=== PATIENT | female | born 1935 | race Caucasian/White ===

== ENCOUNTER → 2016-07-06 | Outpatient (CLI) | payer MEDICARE | LOC: OD 10:53 | PROVIDERS: ATTEND Family Medicine | DX: M06.4 Inflammatory polyarthropathy (principal) | CPT/HCPCS: 36415; 85652; 86140 ==

== ENCOUNTER 2016-07-23 07:18 | Emergency (ER) | payer MEDICARE ==
--- NOTE | 2016-07-23 07:44 | ER Document Report ---
ED General - General Chief Complaint: Arm Pain Stated Complaint: PACEMAKER COMPLICATIONS ARM PAIN Mode of Arrival: Ambulatory Information source: Patient Notes: 81-year-old female presents after a pacemaker was placed 3 days prior with concerns of left arm pain and fever. Pacemaker was placed by Dr. Cronin at [place] due to atrial fibrillation TRAVEL OUTSIDE OF THE [place] IN LAST 30 DAYS: No - HPI Onset: Other Onset/Duration: Persistent Quality of pain: Achy Severity: Mild Pain Level: 1 Associated symptoms: Other Exacerbated by: Denies Relieved by: Denies Similar symptoms previously: Yes Recently seen / treated by doctor: Yes - Related Data Allergies/Adverse Reactions: No Known Allergies Allergy (Verified 07/23/16 07:23) Past Medical History - Social History Smoking Status: Never Smoker Cigarette use (# per day): No Chew tobacco use (# tins/day): No Smoking Education Provided: No Family History: Reviewed & Not Pertinent Patient has suicidal ideation: No Patient has homicidal ideation: No - Past Medical History Cardiac Medical History: Reports: Hx Atrial Fibrillation - and A flutter, Hx Hypertension Neurological Medical History: Reports: Hx Cerebrovascular Accident - Mini- strokes by scans. Pt never aware of stroke symptoms. Endocrine Medical History: Reports: Hx Diabetes Mellitus Type 2 Renal/ Medical History: Denies: Hx Peritoneal Dialysis Psychiatric Medical History: Denies: Hx Depression Past Surgical History: Reports: Hx Section - X2, Hx Hysterectomy, Hx Orthopedic Surgery - carpel tunnel surgery - Immunizations Hx Pneumococcal Vaccination: 03/19/08 Review of Systems - Review of Systems Notes: REVIEW OF SYSTEMS: CONSTITUTIONAL : Denies fever, chills, or sweats. Denies recent illness. EENT: Denies eye, ear, throat, or mouth pain or symptoms. Denies nasal or sinus congestion or discharge. Denies throat, tongue, or mouth swelling or difficulty swallowing. CARDIOVASCULAR: Denies chest pain. Denies palpitations or racing or irregular heart beat. Denies ankle edema. RESPIRATORY: Denies cough, cold, or chest congestion. Denies shortness of breath, difficulty breathing, or wheezing. GASTROINTESTINAL: Denies abdominal pain or distention. Denies nausea, vomiting , or diarrhea. Denies blood in vomitus, stools, or per rectum. Denies black, tarry stools. Denies constipation. GENITOURINARY: Denies difficulty urinating, painful urination, burning, frequency, blood in urine, or discharge. FEMALE GENITOURINARY: Denies vaginal bleeding, heavy or abnormal periods, irregular periods. Denies vaginal discharge or odor. MUSCULOSKELETAL: Denies back or neck pain or stiffness. Denies joint pain or swelling. SKIN: Left pacemaker redness HEMATOLOGIC : Denies easy bruising or bleeding. LYMPHATIC: Denies swollen, enlarged glands. NEUROLOGICAL: Denies confusion or altered mental status. Denies passing out or loss of consciousness. Denies dizziness or lightheadedness. Denies headache. Denies weakness or paralysis or loss of use of either side. Denies problems with gait or speech. Denies sensory loss, numbness, or tingling. Denies seizures. PSYCHIATRIC: Denies anxiety or stress. Denies depression, suicidal ideation, or homicidal ideation. ALL OTHER SYSTEMS REVIEWED AND NEGATIVE. Dictation was performed using [employer] recognition software PHYSICAL EXAMINATION: GENERAL: Well-appearing, well-nourished and in no acute distress. HEAD: Atraumatic, normocephalic. EYES: Pupils equal round and reactive to light, extraocular movements intact, conjunctiva are normal. ENT: Nares patent, oropharynx clear without exudates. Moist mucous membranes. NECK: Normal range of motion, supple without lymphadenopathy LUNGS: Breath sounds clear to auscultation bilaterally and equal. No wheezes rales or rhonchi. HEART: Regular rate and rhythm without murmurs ABDOMEN: Soft, nontender, nondistended abdomen. No guarding, no rebound. No masses appreciated. Female : deferred Musculoskeletal: Normal range of motion, no pitting or edema. No cyanosis. Left arm in sling NEUROLOGICAL: Cranial nerves grossly intact. Normal speech, normal gait. Normal sensory, motor exams PSYCH: Normal mood, normal affect. SKIN: Bandage was removed, sutures are in place, there is no pus noted, blood with clear fluid noted. There is mild erythema on the lateral aspect near the axillary region without any enlarged lymph node Physical Exam - Vital signs Vitals: Temp Pulse Resp BP Pulse Ox 98.2 F 67 20 109/53 L 95 07/23/16 07:23 07/23/16 07:23 07/23/16 07:23 07/23/16 07:23 07/23/16 07:23 Course - Re-evaluation Re-evalutation: 07/23/16 07:44 Lab work pending, does not appear to have any significant drainage however there is mild erythema 07/23/16 10:[address] hanson, he will speak with dr Guidry 07/23/16 11:54 Dr. Cronin does not believe this is an infectious process however wishes to see patient in the office tomorrow. I will discharge home with antibiotics and very close follow-up, family's very happy with this plan After performing a Medical Screening Examination, I estimate there is LOW risk for OPEN FRACTURE, COMPARTMENT SYNDROME, TENDON RUPTURE, ACUTE NEUROVASCULAR INJURY, or RETAINED FOREIGN BODY, thus I consider the discharge disposition reasonable. Also, there is no evidence or peritonitis, sepsis, or toxicity. I have reevaluated this patient multiple times and no significant life threatening changes are noted. The patient and I have discussed the diagnosis and risks, and we agree with discharging home with close follow-up with the understanding that symptoms and presentations can change. We also discussed returning to the Emergency Department immediately if new or worsening symptoms occur. We have discussed the symptoms which are most concerning (e.g., changing or worsening pain, fever, numbness, weakness, cool or painful digits) that necessitate immediate return. - Vital Signs Vital signs: Temp Pulse Resp BP Pulse Ox 98.2 F 67 20 109/53 L 95 07/23/16 07:23 07/23/16 07:23 07/23/16 07:23 07/23/16 07:23 07/23/16 07:23 - Laboratory Result Diagrams: 07/23/16 09:08 07/23/16 09:08 Laboratory results interpreted by me: 07/23/16 09:08 Est GFR ( Amer) 58 L Est GFR (Non-Af Amer) 48 L Glucose 220 H Total Bilirubin 1.4 H - Diagnostic Test Radiology reviewed: Image reviewed, Reports reviewed Discharge - Discharge Clinical Impression: Post-op pain Cellulitis Qualifiers: Site of cellulitis: trunk Site of cellulitis of trunk: chest wall Qualified Code(s): L03.313 - Cellulitis of chest wall Condition: Stable Disposition: HOME, SELF-CARE Instructions: Cellulitis ([facility]) Additional Instructions: Please follow-up with your physician tomorrow morning Prescriptions: Cephalexin Monohydrate [Keflex 500 mg Capsule] 500 mg PO QID #40 capsule Hydrocodone/Acetaminophen [Adams 5-325 mg Tablet] 1 tab PO Q6 #14 tablet Sulfamethoxazole/Trimethoprim [Bactrim Ds Tablet] 2 each PO BID #40 tablet
[2016-07-23 09:26] LABS: ABSOLUTE BASOPHILS # (AUTO) 0.1 10^3/uL (0.0-0.2); ABSOLUTE EOSINOPHILS # (AUTO) 0.1 10^3/uL (0.0-0.6); ABSOLUTE NEUT (AUTO) 6.5 10^3/uL (1.7-8.2); BASOPHILS % (AUTO) 0.7 % (0-2); EOSINOPHILS % (AUTO) 1.2 % (0-6); HEMOGLOBIN 13.5 g/dL (12.0-15.5); HGB HCT DIFFERENCE -0.5; LYMPHOCYTES % (AUTO) 20.2 % (13-45); MEAN CORPUSCULAR HGB CONC 33.1 g/dL (32.0-36.0); MEAN CORPUSCULAR VOLUME 88 fl (80-97); MONOCYTES % (AUTO) 10.8 % (3-13); RED BLOOD COUNT 4.68 10^6/uL (3.72-5.28); RED CELL DISTRIBUTION WIDTH 13.4 % (11.5-14.0); SEGMENTED NEUTROPHILS % (AUTO) 67.1 % (42-78); WHITE BLOOD COUNT 9.7 10^3/uL (4.0-10.5)
[2016-07-23 09:44] LABS: ALANINE AMINOTRANSFERASE 25 U/L (9-52); ALBUMIN 3.9 g/dL (3.5-5.0); ALKALINE PHOSPHATASE 85 U/L (38-126); ANION GAP 11 (5-19); ASPARTATE AMINO TRANSFERASE 18 U/L (14-36); BILIRUBIN,DIRECT 0.3 mg/dL (0.0-0.4); BILIRUBIN,TOTAL 1.4 mg/dL (0.2-1.3); BLOOD UREA NITROGEN 17 mg/dL (7-20); CALCIUM 9.6 mg/dL (8.4-10.2); CARBON DIOXIDE 29 mmol/L (22-30); CHLORIDE 101 mmol/L (98-107); GLUCOSE 220 mg/dL (75-110); POTASSIUM 4.4 mmol/L (3.6-5.0); SODIUM 141.4 mmol/L (137-145); TOTAL PROTEIN 7.1 g/dL (6.3-8.2)
[2016-07-23] MEDS ORDERED: CEPHALEXIN 500 MG CAPSULE PO ONE (10:12)
[2016-07-23] MEDS ORDERED: HYDROCODONE/ACETAMINOPHEN 5-325 MG TABLET PO ONE (10:30)
[2016-07-23 12:12] VITALS: BP 108/55
== END 2016-07-23 12:09 | disposition home or self-care (01) ==
LOC: ER 07:18
DX: G89.18 Other acute postprocedural pain (principal); M79.602 Pain in left arm; L03.313 Cellulitis of chest wall; Z95.0 Presence of cardiac pacemaker; I48.91 Unspecified atrial fibrillation; I10 Essential (primary) hypertension; E11.9 Type 2 diabetes mellitus without complications; Z86.73 Personal history of transient ischemic attack (TIA), and cerebral infarction without residual deficits
CPT/HCPCS: 99283; 36415; 87040; 85025; 80053; 71020; A9270 ×2

== ENCOUNTER 2016-10-20 07:42 | Day surgery (SDC) | payer MEDICARE ==
[2016-10-20] MEDS ORDERED: DIPHENHYDRAMINE HCL 50 MG/ML VIAL ONE (08:21)
[2016-10-20] MEDS ORDERED: ONDANSETRON HCL INJ/PF 4 MG/2 ML SDV ONE (08:21)
[2016-10-20] MEDS ORDERED: MIDAZOLAM 2 MG/2 ML INJ ONE (08:22)
[2016-10-20] MEDS ORDERED: NALOXONE HCL INJ/PF 0.4 MG/1 ML SDV ONE (08:22)
[2016-10-20] MEDS ORDERED: FLUMAZENIL INJ 0.5 MG/5 ML VIAL IV ONE (08:25)
[2016-10-20] MEDS ORDERED: GLUCAGON,HUMAN RECOMB 1 MG INJ ONE (08:25)
[2016-10-20] MEDS ORDERED: EPINEPHRINE INJ 1 MG/10 ML DISP.SYRIN ONE (08:25)
[2016-10-20] MEDS: MIDAZOLAM 2 MG/2 ML INJ ONE ×4 (08:55→09:20)
[2016-10-20] MEDS: FENTANYL CITRATE INJ/PF 100 MCG/2 ML AMPUL ONE ×2 (08:57→09:08)
--- NOTE | 2016-10-20 09:44 | Operative Report ---
Operative Report DATE OF SURGERY: 10/20/16 Operative Report: The risks, benefits and alternatives of the procedure including risks of bleeding, perforation requiring surgery are explained to the patient detail and informed consent was obtained. Patient was taken to the endoscopy suite and placed in the left, lateral decubital position. Timeout was called. Conscious sedation medications are provided. A rectal examination was done which did not reveal any masses, tears or fissures. An Olympus video scope was inserted into the patient's rectum. The scope was then carefully guided but there was significant difficulty completing the colonoscopy. This was despite the application of abdominal pressure and turning the patient. She has a very redundant left side of the colon. The right side of the colon was not visualized. It is unclear if a change of medications i.e. changing towards propofol sedation would make it any better. She likely has some adhesions and a very redundant colon that prevents completion of optical colonoscopy. The segments of the colon distal to the hepatic flexure were visualized including the transverse colon, splenic flexure, very with tendon descending colon. Sigmoid colon and rectum were visualized. Retroflexion maneuver was performed. PREOPERATIVE DIAGNOSIS: Change of bowel habits, constipation POSTOPERATIVE DIAGNOSIS: Redundancy of the left side of the colon. Colon polyp noted at the hepatic flexure which is able to be removed via snare polypectomy. May need alternative imaging methods. OPERATION: Colonoscopy with snare polypectomy SURGEON: SAMSON GLASGOW ANESTHESIA: Moderate Sedation - 5 mg of Versed, 75 mcg of fentanyl. Conscious sedation monitoring time 30 minutes. TISSUE REMOVED OR ALTERED: Hepatic flexure polyp retrieved. COMPLICATIONS: None. ESTIMATED BLOOD LOSS: None. INTRAOPERATIVE FINDINGS: As described above. PROCEDURE: Patient tolerated the procedure well. No immediate postprocedure complications are noted. Patient discharged in good condition. Discharge date 10/20/2016. Discharge diet: Regular. Discharge activity: Regular. 2-3 week follow-up to discuss findings. 1 year surveillance colonoscopy., Will need alternative prep. Patient is instructed to call the office or proceed to the emergency room should there be any further problems or questions. We will wait on pathology.
[2016-10-20 10:30] VITALS: BP 129/52
== END 2016-10-20 10:40 | disposition home or self-care (01) ==
LOC: END 07:42
PROVIDERS: ATTEND Internal Medicine Gastroenterology
PROC: 0DBK8ZX Excision of Ascending Colon, Via Natural or Artificial Opening Endoscopic, Diagnostic (ICD-10-PCS; principal; 2016-10-20 08:30)
DX: K63.5 Polyp of colon (principal); Z79.899 Other long term (current) drug therapy; Z79.82 Long term (current) use of aspirin; Z79.84 Long term (current) use of oral hypoglycemic drugs; Z79.51 Long term (current) use of inhaled steroids
CPT/HCPCS: 45385; 82962; 88305 ×2; J2250; J3010; J0171; J1200; J1610; J2310; J2405; J3490

== ENCOUNTER 2016-10-31 12:53 | Emergency (ER) | payer MEDICARE ==
--- NOTE | 2016-10-31 13:31 | ER Document Report ---
ED Medical Screen (RME) - General Chief Complaint: Headache Stated Complaint: FACE/NECK/HEAD PAIN Time Seen by Provider: 10/31/16 13:13 Mode of Arrival: Ambulatory Information source: Patient Notes: 81-year-old female history of migraine headache presents with complaints of right-sided neck pain and right temporal pain. Patient denies any fevers or chills notes it hurts with palpation I have greeted and performed a rapid initial assessment of this patient. A comprehensive ED assessment and evaluation of the patient, analysis of test results and completion of the medical decision making process will be conducted by additional ED providers. PHYSICAL EXAMINATION: GENERAL: Well-appearing, well-nourished and in no acute distress. HEAD: Atraumatic, normocephalic. EYES: Pupils equal round extraocular movements intact, conjunctiva are normal. ENT: Nares patent, tenderness on the temperal region on the right , right cervical pain NECK: Normal range of motion LUNGS: No respiratory distress Musculoskeletal: Normal range of motion NEUROLOGICAL: Normal speech, normal gait. PSYCH: Normal mood, normal affect. SKIN: Warm, Dry, normal turgor, no rashes or lesions noted. TRAVEL OUTSIDE OF THE [place] IN LAST 30 DAYS: No - Related Data Allergies/Adverse Reactions: No Known Allergies Allergy (Verified 10/31/16 13:00) Past Medical History - Social History Frequency of alcohol use: None Drug Abuse: None - Past Medical History Cardiac Medical History: Reports: Hx Atrial Fibrillation - and A flutter, Hx Hypercholesterolemia, Hx Hypertension Denies: Hx Coronary Artery Disease, Hx Heart Attack Pulmonary Medical History: Reports: Hx COPD, Hx Pneumonia Denies: Hx Asthma, Hx Bronchitis Neurological Medical History: Reports: Hx Cerebrovascular Accident - Mini- strokes by scans. Pt never aware of stroke symptoms., Hx Migraine. Denies: Hx Seizures Endocrine Medical History: Reports: Hx Diabetes Mellitus Type 2 Renal/ Medical History: Denies: Hx Peritoneal Dialysis GI Medical History: Reports: Hx Gastroesophageal Reflux Disease Musculoskeltal Medical History: Reports Hx Arthritis - HAND, KNEES, SHOULDER, NECK Psychiatric Medical History: Denies: Hx Depression Past Surgical History: Reports: Hx Cardiac Surgery - pacemaker 08/02, Hx Section - X2, Hx Hysterectomy, Hx Orthopedic Surgery - carpel tunnel surgery - Immunizations Hx Diphtheria, Pertussis, Tetanus Vaccination: Yes Physical Exam - Vital signs Vitals: Resp 18 10/31/16 13:14 Course - Vital Signs Vital signs: Temp Pulse Resp BP Pulse Ox 10/31/16 13:14
[2016-10-31] MEDS ORDERED: MORPHINE SULFATE 10 MG/ML INJ IV ONE (13:32)
[2016-10-31 14:18] LABS: ABSOLUTE BASOPHILS # (AUTO) 0.1 10^3/uL (0.0-0.2); ABSOLUTE EOSINOPHILS # (AUTO) 0.2 10^3/uL (0.0-0.6); ABSOLUTE MONOCYTES (AUTO) 0.6 10^3/uL (0.1-1.4); ABSOLUTE NEUT (AUTO) 4.6 10^3/uL (1.7-8.2); BASOPHILS % (AUTO) 0.9 % (0-2); EOSINOPHILS % (AUTO) 3.2 % (0-6); HEMATOCRIT 36.5 % (36.0-47.0); HEMOGLOBIN 12.4 g/dL (12.0-15.5); HGB HCT DIFFERENCE 0.7; LYMPHOCYTES % (AUTO) 26.9 % (13-45); MEAN CORPUSCULAR HEMOGLOBIN 30.3 pg (27.0-33.4); MEAN CORPUSCULAR HGB CONC 33.8 g/dL (32.0-36.0); MEAN CORPUSCULAR VOLUME 90 fl (80-97); MONOCYTES % (AUTO) 8.2 % (3-13); RED BLOOD COUNT 4.08 10^6/uL (3.72-5.28); RED CELL DISTRIBUTION WIDTH 14.3 % (11.5-14.0); SEGMENTED NEUTROPHILS % (AUTO) 60.8 % (42-78); WHITE BLOOD COUNT 7.6 10^3/uL (4.0-10.5)
[2016-10-31 14:50] LABS: ALANINE AMINOTRANSFERASE 23 U/L (9-52); ALKALINE PHOSPHATASE 66 U/L (38-126); ANION GAP 11 (5-19); ASPARTATE AMINO TRANSFERASE 16 U/L (14-36); BILIRUBIN,DIRECT 0.5 mg/dL (0.0-0.4); BILIRUBIN,TOTAL 0.9 mg/dL (0.2-1.3); BLOOD UREA NITROGEN 21 mg/dL (7-20); C-REACTIVE PROTEIN 7.9 mg/L (<10.0); CALCIUM 9.6 mg/dL (8.4-10.2); CARBON DIOXIDE 25 mmol/L (22-30); CHLORIDE 104 mmol/L (98-107); CREATININE RESULT 1.04 mg/dL (0.52-1.25); GLUCOSE 202 mg/dL (75-110); POTASSIUM 4.2 mmol/L (3.6-5.0); SODIUM 139.9 mmol/L (137-145); TOTAL PROTEIN 6.9 g/dL (6.3-8.2)
[2016-10-31 14:59] LABS: ERYTHROCYTE SEDIMENTATION RATE 36 mm/hr (0-30)
--- NOTE | 2016-10-31 16:30 | ER Document Report ---
ED Headache - General Mode of Arrival: Ambulatory Information source: Patient TRAVEL OUTSIDE OF THE [place] IN LAST 30 DAYS: No <ENMA VENEGAS - Last Filed: 10/31/16 19:53> <CAMILLE WYNN - Last Filed: 10/31/16 22:32> - General Chief Complaint: Headache Stated Complaint: FACE/NECK/HEAD PAIN Time Seen by Provider: 10/31/16 13:13 Notes: Patient is a 81-year-old female who presents to the emergency department today with complaints of a headache in the back of her head. Patient states she has been having a headache for approximately 3 days. Patient denies any trauma or falls recently. Patient has a cough which she states is chronic. Patient denies any fall or trauma. (ENMA VENEGAS) - Related Data Allergies/Adverse Reactions: No Known Allergies Allergy (Verified 10/31/16 13:00) Past Medical History - General Information source: Patient - Social History Smoking Status: Former Smoker Cigarette use (# per day): No Frequency of alcohol use: None Drug Abuse: None Lives with: Family Family History: Reviewed & Not Pertinent Patient has suicidal ideation: No Patient has homicidal ideation: No - Past Medical History Cardiac Medical History: Reports: Hx Atrial Fibrillation - and A flutter, Hx Hypercholesterolemia, Hx Hypertension Pulmonary Medical History: Reports: Hx COPD, Hx Pneumonia Neurological Medical History: Reports: Hx Cerebrovascular Accident - Mini- strokes by scans. Pt never aware of stroke symptoms., Hx Migraine Endocrine Medical History: Reports: Hx Diabetes Mellitus Type 2 GI Medical History: Reports: Hx Gastroesophageal Reflux Disease Musculoskeltal Medical History: Reports Hx Arthritis - HAND, KNEES, SHOULDER, NECK Past Surgical History: Reports: Hx Cardiac Surgery - pacemaker 08/02, Hx Section - X2, Hx Hysterectomy, Hx Orthopedic Surgery - carpel tunnel surgery - Immunizations Hx Diphtheria, Pertussis, Tetanus Vaccination: Yes Hx Pneumococcal Vaccination: 03/19/08 <ENMA VENEGAS - Last Filed: 10/31/16 19:53> Review of Systems - Review of Systems Constitutional: No symptoms reported EENT: No symptoms reported Cardiovascular: No symptoms reported Respiratory: See HPI, Cough Gastrointestinal: No symptoms reported Genitourinary: No symptoms reported Female Genitourinary: No symptoms reported Musculoskeletal: No symptoms reported Skin: No symptoms reported Hematologic/Lymphatic: No symptoms reported Neurological/Psychological: See HPI, Headaches -: Yes All other systems reviewed and negative <RUBI,ENMA - Last Filed: 10/31/16 19:53> Physical Exam <ENMA VENEGAS - Last Filed: 10/31/16 19:53> <CAMILLE WYNN - Last Filed: 10/31/16 22:32> - Vital signs Vitals: Temp Pulse BP Pulse Ox 97.6 F 67 137/40 H 96 10/31/16 12:59 10/31/16 12:59 10/31/16 12:59 10/31/16 12:59 - Notes Notes: Physical Exam: General: Alert, appears well. HEENT: Normocephalic. Atraumatic. PERRL. Extraocular movements intact. Oropharynx clear. TMs are clear bilaterally. Tenderness with palpation at the base of the right skull. Neck: Supple. Tenderness with palpation over the right trapezius and levator scapula. Pain with rotation of the neck to the right, reproducible pain. Respiratory: No respiratory distress. Clear and equal breath sounds bilaterally. Cardiovascular: Regular rate and rhythm. Abdominal: Normal Inspection. Non-tender. No distension. Normal Bowel Sounds. Back: Non-tender. No deformity or step off. Extremities: Moves all four extremities. Upper extremities: Normal inspection. Normal ROM. Lower extremities: Normal inspection. No edema. Normal ROM. Neurological: Normal cognition. AAOx4. Normal speech. Psychological: Normal affect. Normal Mood. Skin: Warm. Dry. Normal color. (ENMA VENEGAS) Course - Laboratory Result Diagrams: 10/31/16 14:00 10/31/16 14:00 <INDIANA VENEGASON - Last Filed: 10/31/16 19:53> - Laboratory Result Diagrams: 10/31/16 14:00 10/31/16 14:00 - Diagnostic Test Radiology reviewed: Reports reviewed <CAMILLE WYNN - Last Filed: 10/31/16 22:32> - Re-evaluation Re-evalutation: 10/31/16 18:36 (ENMA VENEGAS) Patient with no further headache at this time. Patient has been taking headache medication at home without relief. Pain relieved with pain medication. Patient has reproducible neck pain and also pain when she turns her head. No acute findings on imaging or blood work. Patient will be discharged home is to follow-up with her doctor. She had been getting injections which completely resolved her neck and head pain. She is encouraged to follow-up with her doctor this week. Return if any worsening or concerning symptoms. (CAMILLE WYNN) - Vital Signs Vital signs: Temp Pulse Resp BP Pulse Ox 97.6 F 63 16 139/46 H 98 10/31/16 18:11 10/31/16 18:11 10/31/16 18:11 10/31/16 18:11 10/31/16 18:11 - Laboratory Laboratory results interpreted by me: 10/31/16 10/31/16 14:00 14:00 RDW 14.3 H ESR 36 H BUN 21 H Est GFR (Non-Af Amer) 51 L Glucose 202 H Direct Bilirubin 0.5 H Discharge <ENMA VENEGAS - Last Filed: 10/31/16 19:53> <CAMILLE WYNN - Last Filed: 10/31/16 22:32> - Discharge Clinical Impression: Neck pain Head ache Qualifiers: Headache type: unspecified Headache chronicity pattern: acute headache Intractability: not intractable Qualified Code(s): R51 - Headache Condition: Stable Disposition: HOME, SELF-CARE Instructions: Headache ([facility]), Neck Injury (Cervical Strain) ([facility]) Prescriptions: Docusate Sodium [Colace 100 mg Capsule] 100 mg PO BID #60 capsule Oxycodone HCl/Acetaminophen [Percocet 5-325 mg Tablet] 1 tab PO Q4H PRN #15 tablet PRN Reason: Referrals: MERY FELDER PA-C [Primary Care Provider] - Follow up tomorrow Scribe Attestation: 10/31/16 22:32 I personally performed the services described in the documentation, reviewed and edited the documentation which was dictated to the scribe in my presence, and it accurately records my words and actions. (CAMILLE WYNN) Scribe Documentation - Scribe Written by Maryaibe:: Kevin Pascal, 10/31/2016 1615 acting as scribe for :: Byron <ENMA VENEGAS - Last Filed: 10/31/16 19:53>
--- NOTE | 2016-10-31 16:43 | RADIOLOGY REPORT (SQ) ---
EXAM DESCRIPTION: CT HEAD WITHOUT COMPLETED DATE/TIME: 10/31/2016 4:30 pm REASON FOR STUDY: headache, on eliquis COMPARISON: None. TECHNIQUE: Axial images acquired through the brain without intravenous contrast. Images reviewed wi th bone, brain and subdural windows. Images stored on PACS. All CT scanners at this facility use dose modulation, iterative reconstruction, and/or weight based d osing when appropriate to reduce radiation dose to as low as reasonably achievable (ALARA). [facility]: Dose Right [facility]: CareDose [facility]: Dose Right [facility]: Teradose 4D [facility]: [employer] RADIATION DOSE: Up-to-date CT equipment and radiation dose reduction techniques were employed. CTDIv ol: 64.6 mGy. DLP: 1163 mGy-cm. mGy. LIMITATIONS: None. FINDINGS: VENTRICLES: Normal size and contour. CEREBRUM: No acute intracranial hemorrhage. There is chronic white matter disease with low attenuation in the bifrontal white matter, multiple la cunar infarcts in the right basal ganglia. No CT evidence of acute large territory ischemic change, mass effect, or midline shift. CEREBELLUM: No masses. No hemorrhage. No alteration of density. No evidence for acute infarction. EXTRAAXIAL SPACES: No fluid collections. No masses. ORBITS AND GLOBE: No intra- or extraconal masses. Normal contour of globe without masses. CALVARIUM: No fracture. PARANASAL SINUSES: Mucus or serous retention cyst right maxillary sinus SOFT TISSUES: No mass or hematoma. OTHER: No other significant finding. IMPRESSION: No acute changes Bifrontal chronic white matter disease TECHNICAL DOCUMENTATION: JOB ID: [id number] Quality ID # [id number]: Final reports with documentation of one or more dose reduction techniques (e.g., Au tomated exposure control, adjustment of the mA and/or kV according to patient size, use of iterative reconstruction technique) 2010 [employer]- All Rights Reserved
--- NOTE | 2016-10-31 18:05 | RADIOLOGY REPORT (SQ) ---
EXAM DESCRIPTION: CHEST SINGLE VIEW COMPLETED DATE/TIME: 10/31/2016 5:40 pm REASON FOR STUDY: cough COMPARISON: 07/23/2016 EXAM PARAMETERS: NUMBER OF VIEWS: One view. TECHNIQUE: Single frontal radiographic view of the chest acquired. RADIATION DOSE: NA LIMITATIONS: None. FINDINGS: LUNGS AND PLEURA: No opacities, masses or pneumothorax. No pleural effusion. MEDIASTINUM AND HILAR STRUCTURES: No masses. Contour normal. HEART AND VASCULAR STRUCTURES: Heart size is borderline. There is no evidence of failure. BONES: No acute findings. HARDWARE: Pacemaker on the left. OTHER: No other significant finding. IMPRESSION: Borderline cardiomegaly without CHF. TECHNICAL DOCUMENTATION: JOB ID: [id number]
[2016-10-31 18:13] VITALS: BP 139/46
[2016-10-31] MEDS ORDERED: ONDANSETRON ODT 4 MG TAB (6 TAB/DSPK) PO PRN (18:43)
[2016-10-31] MEDS ORDERED: HYDROCODONE/ACETAMINOPHEN 5-325 MG 6 TAB/DSPK PO PRN (18:43)
== END 2016-10-31 19:14 | disposition home or self-care (01) ==
LOC: ER 12:53
DX: M54.2 Cervicalgia (principal); R51 Headache; I48.91 Unspecified atrial fibrillation; E78.00 Pure hypercholesterolemia, unspecified; I10 Essential (primary) hypertension; J44.9 Chronic obstructive pulmonary disease, unspecified; Z95.0 Presence of cardiac pacemaker; Z90.710 Acquired absence of both cervix and uterus; Z86.73 Personal history of transient ischemic attack (TIA), and cerebral infarction without residual deficits
CPT/HCPCS: 99284; 96374; 36415; 85025; 85652; 86140; 80053; 71010; 70450; J2270; A9270 ×2

== ENCOUNTER 2017-03-28 15:10 | Inpatient (IN) | payer MEDICARE ==
--- NOTE | 2017-03-28 16:56 | ER Document Report ---
ED Medical Screen (RME) - General Chief Complaint: Shortness Of Breath Stated Complaint: CHEST PAIN Time Seen by Provider: 03/28/17 16:49 Notes: This 82-year-old female patient sent from the office for evaluation of symptoms. Reports short of breath for the past 5 days. She is having substernal chest pain which seems to occur when a sharp pain in her left elbow region gets bad. There is no chest pain at this time. She does have a history of atrial fibrillation, is currently in a paced rhythm. Past history includes hyperlipidemia, hypertension, pacemaker, diabetes mellitus type 2, multiple mini strokes by CT scan. Brief exam shows the left arm elbow pain is actually a lateral humeral epicondylitis or tennis elbow. She is right-handed. Her lungs are reasonably clear at this time and pulse ox 100% on room air. I have greeted and performed a rapid initial assessment of this patient. A comprehensive ED assessment and evaluation of the patient, analysis of test results and completion of the medical decision making process will be conducted by additional ED providers. TRAVEL OUTSIDE OF THE [place] IN LAST 30 DAYS: No - Related Data Allergies/Adverse Reactions: No Known Allergies Allergy (Verified 03/28/17 15:13) Past Medical History - Social History Frequency of alcohol use: None - Past Medical History Cardiac Medical History: Reports: Hx Atrial Fibrillation - and A flutter, Hx Hypercholesterolemia, Hx Hypertension Denies: Hx Coronary Artery Disease, Hx Heart Attack Pulmonary Medical History: Reports: Hx COPD, Hx Pneumonia Denies: Hx Asthma, Hx Bronchitis Neurological Medical History: Reports: Hx Cerebrovascular Accident - Mini- strokes by scans. Pt never aware of stroke symptoms., Hx Migraine. Denies: Hx Seizures Endocrine Medical History: Reports: Hx Diabetes Mellitus Type 2 Renal/ Medical History: Denies: Hx Peritoneal Dialysis GI Medical History: Reports: Hx Gastroesophageal Reflux Disease Musculoskeltal Medical History: Reports Hx Arthritis - HAND, KNEES, SHOULDER, NECK Psychiatric Medical History: Denies: Hx Depression Past Surgical History: Reports: Hx Cardiac Surgery - pacemaker 08/02, Hx Section - X2, Hx Hysterectomy, Hx Orthopedic Surgery - carpel tunnel surgery - Immunizations Hx Diphtheria, Pertussis, Tetanus Vaccination: Yes Physical Exam - Vital signs Vitals: Temp Pulse Resp BP Pulse Ox 98.5 F 61 16 156/52 H 100 03/28/17 16:02 03/28/17 16:02 03/28/17 16:02 03/28/17 16:02 03/28/17 16:02 Course - Vital Signs Vital signs: Temp Pulse Resp BP Pulse Ox 98.5 F 61 16 156/52 H 100 03/28/17 16:02 03/28/17 16:02 03/28/17 16:02 03/28/17 16:02 03/28/17 16:02
--- NOTE | 2017-03-28 18:06 | RADIOLOGY REPORT (SQ) ---
EXAM DESCRIPTION: CHEST PA/LAT COMPLETED DATE/TIME: 03/28/2017 5:57 pm REASON FOR STUDY: SOB x 5 days COMPARISON: None. NUMBER OF VIEWS: Two view. TECHNIQUE: Frontal and lateral radiographic views of the chest acquired. LIMITATIONS: None. FINDINGS: LUNGS AND PLEURA: Mild linear basilar atelectasis. No focal infiltrates, masses or pneumo thorax. No pleural effusion. MEDIASTINUM AND HILAR STRUCTURES: No masses. No contour abnormalities. HEART AND VASCULAR STRUCTURES: Heart enlarged without failure. Aorta normal for age. BONES: No acute findings. Degenerative changes in the spine. HARDWARE: Pacemaker. OTHER: No other significant finding. IMPRESSION: CARDIAC ENLARGEMENT WITHOUT FAILURE. TECHNICAL DOCUMENTATION: JOB ID: [id number] [employer]- All Rights Reserved
[2017-03-28 18:23] LABS: ABSOLUTE EOSINOPHILS # (AUTO) 0.2 10^3/uL (0.0-0.6); ABSOLUTE LYMPHOCYTES (AUTO) 2.9 10^3/uL (0.5-4.7); ABSOLUTE MONOCYTES (AUTO) 0.8 10^3/uL (0.1-1.4); ABSOLUTE NEUT (AUTO) 4.5 10^3/uL (1.7-8.2); BASOPHILS % (AUTO) 0.5 % (0-2); EOSINOPHILS % (AUTO) 2.7 % (0-6); HEMATOCRIT 36.7 % (36.0-47.0); LYMPHOCYTES % (AUTO) 33.8 % (13-45); MEAN CORPUSCULAR HEMOGLOBIN 28.4 pg (27.0-33.4); MEAN CORPUSCULAR HGB CONC 32.6 g/dL (32.0-36.0); MEAN CORPUSCULAR VOLUME 87 fl (80-97); MONOCYTES % (AUTO) 9.5 % (3-13); PLATELET COUNT 190 10^3/uL (150-450); RED BLOOD COUNT 4.22 10^6/uL (3.72-5.28); SEGMENTED NEUTROPHILS % (AUTO) 53.5 % (42-78); TOTAL CELLS COUNTED % (AUTO) 100 %; WHITE BLOOD COUNT 8.5 10^3/uL (4.0-10.5)
[2017-03-28 18:27] LABS: APPEARANCE,URINE CLEAR; BILIRUBIN,URINE NEGATIVE (NEGATIVE); COLOR,URINE YELLOW; GLUCOSE, URINE NEGATIVE (NEGATIVE); KETONES,URINE NEGATIVE (NEGATIVE); LEUKOCYTE ESTERASE,URINE NEGATIVE (NEGATIVE); NITRITE,URINE NEGATIVE (NEGATIVE); PROTEIN,URINE NEGATIVE (NEGATIVE); URINE SPECIFIC GRAVITY 1.009; UROBILINOGEN,URINE NEGATIVE mg/dL (<2.0)
--- NOTE | 2017-03-28 18:32 | EKG REPORT ---
SEVERITY:- ABNORMAL ECG - ATRIAL-VENTRICULAR DUAL-PACED COMPLEXES : Confirmed by: Presley Wray MD 28-Mar-2017 18:31:54
[2017-03-28 18:46] LABS: ANION GAP 10 (5-19)
[2017-03-28 18:51] LABS: ALANINE AMINOTRANSFERASE 28 U/L (9-52); ALBUMIN 4.4 g/dL (3.5-5.0); ALKALINE PHOSPHATASE 108 U/L (38-126); ASPARTATE AMINO TRANSFERASE 27 U/L (14-36); BILIRUBIN,DIRECT 0.4 mg/dL (0.0-0.4); BILIRUBIN,TOTAL 1.2 mg/dL (0.2-1.3); BLOOD UREA NITROGEN 28 mg/dL (7-20); CALCIUM 9.9 mg/dL (8.4-10.2); CARBON DIOXIDE 25 mmol/L (22-30); CHLORIDE 109 mmol/L (98-107); CREATINE KINASE 83 U/L (30-135); GLUCOSE 69 mg/dL (75-110); POTASSIUM 4.4 mmol/L (3.6-5.0); TOTAL PROTEIN 7.3 g/dL (6.3-8.2)
[2017-03-28 18:58] LABS: CREATINE KINASE MB 1.96 ng/mL (<4.55); NT PRO BNP 1440 pg/mL (<450)
[2017-03-28 18:59] LABS: TROPONIN I < 0.012 ng/mL
--- NOTE | 2017-03-28 21:58 | ER Document Report ---
ED General - General Chief Complaint: Shortness Of Breath Stated Complaint: CHEST PAIN Time Seen by Provider: 03/28/17 16:49 Notes: Patient is an 82-year-old female presents emergency department with a chief complaint of shortness of breath for a week and half, dyspnea on exertion, orthopnea, dizziness. She states that she went to her primary care doctor today who referred her over here. She denies any history of congestive heart failure. She denies any cough. States that it is difficult to take a deep breath. She is also admits to left arm pain which she has had for 2 weeks that radiates into her upper arm. Worse with movement tender to touch. Denies any trauma Past medical history significant for history of COPD not on home O2, history of atrial fibrillation status post pacemaker and defibrillator, hypertension, insulin-dependent diabetes, hypothyroidism, hyperlipidemia Past surgical history significant for pacemaker placement, hysterectomy Social history admits to former tobacco user, denies any alcohol or drug use Home medications Toujeo IM, atorvastatin, glipizide, Flexeril, Eliquis, lisinopril, gabapentin, ProAir, Januvia, baby aspirin, metoprolol, Synthroid Primary CARE providers Dr. Butler Cardiology follows with Dr. Bryan Rheumatology follows with Dr. Ansari TRAVEL OUTSIDE OF THE [place] IN LAST 30 DAYS: No - Related Data Allergies/Adverse Reactions: No Known Allergies Allergy (Verified 03/28/17 21:06) Home Medications: Current Home Medications Albuterol Sulfate [Proair Hfa Inhalation Aerosol 8.5 gm Mdi] 1 puff IH Q4 PRN [History] Apixaban [Eliquis] 5 mg PO Q12 03/29/17 [History] Aspirin [Aspirin EC] 81 mg PO DAILY 03/29/17 [History] Atorvastatin Calcium 20 mg PO QHS 03/29/17 [History] Cyclobenzaprine HCl 5 mg PO TID PRN 03/29/17 [History] Gabapentin 300 mg PO TID 03/29/17 [History] Glipizide [Glipizide ER] 2.5 mg PO DAILY 03/29/17 [History] Glipizide [Glipizide Xl] 10 mg PO DAILY 03/29/17 [History] Insulin Glargine,Hum.rec.anlog [Toujeo Solostar] 9 unit SQ ASDIR 03/29/17 [ History] Levothyroxine Sodium 125 mcg PO DAILY 03/29/17 [History] Lisinopril 10 mg PO DAILY 03/29/17 [History] Metoprolol Succinate 25 mg PO DAILY 03/29/17 [History] Sitagliptin Phosphate [Januvia 50 mg Tablet] 1 tab PO DAILY 03/29/17 [History] Past Medical History - Social History Smoking Status: Unknown if Ever Smoked Frequency of alcohol use: None Family History: Reviewed & Not Pertinent Patient has suicidal ideation: No Patient has homicidal ideation: No - Past Medical History Cardiac Medical History: Reports: Hx Atrial Fibrillation - and A flutter, with pacer, Hx Hypercholesterolemia, Hx Hypertension Denies: Hx Coronary Artery Disease, Hx Heart Attack Pulmonary Medical History: Reports: Hx COPD, Hx Pneumonia Denies: Hx Asthma, Hx Bronchitis Neurological Medical History: Reports: Hx Cerebrovascular Accident - Mini- strokes by scans. Pt never aware of stroke symptoms., Hx Migraine. Denies: Hx Seizures Endocrine Medical History: Reports: Hx Diabetes Mellitus Type 2 Renal/ Medical History: Denies: Hx Peritoneal Dialysis GI Medical History: Reports: Hx Gastroesophageal Reflux Disease Musculoskeltal Medical History: Reports Hx Arthritis - HAND, KNEES, SHOULDER, NECK Psychiatric Medical History: Denies: Hx Depression Past Surgical History: Reports: Hx Cardiac Surgery - pacemaker 08/02, Hx Section - X2, Hx Hysterectomy, Hx Orthopedic Surgery - carpel tunnel surgery - Immunizations Hx Diphtheria, Pertussis, Tetanus Vaccination: Yes Hx Pneumococcal Vaccination: 03/19/08 Physical Exam - Vital signs Vitals: Temp Pulse Resp BP Pulse Ox 98.5 F 61 16 156/52 H 100 03/28/17 16:02 03/28/17 16:02 03/28/17 16:02 03/28/17 16:02 03/28/17 16:02 - Notes Notes: PHYSICAL EXAM GENERAL: Alert, interacts well. HEAD: Normocephalic, atraumatic. EYES: Pupils equal, round, and reactive to light. Extraocular movements intact. ENT: Oral mucosa moist, tongue midline. NECK: Full range of motion. Supple. Trachea midline. LUNGS: Mild rales noted throughout no wheezes, or rhonchi. No respiratory distress. HEART: Regular rate and rhythm. No murmurs, gallops, or rubs. ABDOMEN: Soft, nondistended, nontender. No guarding, rebound, or rigidity.. Bowel sounds present in all 4 quadrants. EXTREMITIES: Moves all 4 extremities spontaneously. 2+ pitting edema, radial and dorsalis pedis pulses 2/4 bilaterally. No cyanosis. NEUROLOGICAL: Alert and oriented x4. Normal speech. PSYCH: Normal affect, normal mood. SKIN: Warm, dry, normal turgor. No rashes or lesions noted. Course - Re-evaluation Re-evalutation: 03/28/17 22:57 Patient is an 82-year-old female is hemodynamically stable, no acute distress and afebrile. Presentation is consistent with a new onset congestive heart failure . Given clinical history and a BNP of 1440. Ambulatory pulse ox patient is very well in appearance, vitals within normal limits. Maintained approximately 98-100%. Low clinical suspicion for ACS given clinical history, exam, EKG without ST elevations or depressions, and negative initial troponin. HEART score 4. PE also seems unlikely given clinical history, absence of tachycardia or dyspnea. Well's score of 0. CXR without evidence of pneumothorax or pneumonia. No widened mediastinum. Aortic dissection also seems unlikely given history, symmetric pulses, CXR, and vitals. 03/28/17 23:41 Patient accepted for admission for new onset congestive heart failure under Dr. Price. Patient is agreeable to stay. - Vital Signs Vital signs: Temp Pulse Resp BP Pulse Ox 97.3 F 61 16 141/70 H 100 03/29/17 05:14 03/29/17 05:14 03/29/17 05:14 03/29/17 05:14 03/29/17 05:14 - Laboratory Result Diagrams: 03/28/17 17:50 03/28/17 17:50 Laboratory results interpreted by me: 03/28/17 03/28/17 03/28/17 17:50 17:50 17:50 RDW 15.0 H Chloride 109 H BUN 28 H Est GFR ( Amer) 55 L Est GFR (Non-Af Amer) 45 L Glucose 69 L NT-Pro-B Natriuret Pep 1440 H Urine Blood 03/28/17 17:50 RDW Chloride BUN Est GFR ( Amer) Est GFR (Non-Af Amer) Glucose NT-Pro-B Natriuret Pep Urine Blood SMALL H - Diagnostic Test Radiology reviewed: Image reviewed, Reports reviewed - EKG Interpretation by Me EKG shows normal: Sinus rhythm Rate: Normal Rhythm: NSR Hoven/QRS: IVCD When compared to previous EKG there are: Changes noted Discharge - Discharge Clinical Impression: CHF (congestive heart failure) Qualifiers: Congestive heart failure type: unspecified Congestive heart failure chronicity : unspecified Qualified Code(s): I50.9 - Heart failure, unspecified Condition: Stable Disposition: ADMITTED INPATIENT Admitting Provider: Hospitalist - [place] [facility] Admitted: Telemetry
--- NOTE | 2017-03-28 23:32 | RADIOLOGY REPORT (SQ) ---
EXAM DESCRIPTION: ELBOW LEFT OVER 2 VIEWS COMPLETED DATE/TIME: 03/28/2017 10:46 pm REASON FOR STUDY: pain, no trauma COMPARISON: None. NUMBER OF VIEWS: Four views. TECHNIQUE: AP, lateral, and both oblique radiographic images acquired of the left elbow. LIMITATIONS: None. FINDINGS: MINERALIZATION: Normal. BONES: No acute fracture or dislocation. JOINT: No effusion. SOFT TISSUES: No soft tissue swelling. No radiopaque foreign body. IMPRESSION: No radiographic evidence of acute fracture. TECHNICAL DOCUMENTATION: JOB ID: [id number] [employer]- All Rights Reserved
[2017-03-28] MEDS ORDERED: FUROSEMIDE INJ/PF 40 MG/4 ML SDV IV ONE (23:40)
[2017-03-29] MEDS ORDERED: ACETAMINOPHEN 325 MG TABLET PO PRN (00:22)
[2017-03-29] MEDS ORDERED: ONDANSETRON HCL INJ/PF 4 MG/2 ML SDV IV PRN ×2 (00:22→11:30)
[2017-03-29] MEDS ORDERED: DEXTROSE 40% GEL 15 GM TUBE PO PRN ×2 (00:45)
[2017-03-29] MEDS ORDERED: GLUCAGON,HUMAN RECOMB 1 MG INJ IM PRN (00:45)
[2017-03-29] MEDS ORDERED: DEXTROSE 50%-WATER 25 GM/50 ML DISP.SYRIN IV PRN ×2 (00:45)
[2017-03-29 01:33] LABS: TROPONIN I < 0.012 ng/mL
[2017-03-29] MEDS ORDERED: GABAPENTIN 300 MG CAPSULE PO SCH (06:00)
[2017-03-29] MEDS ORDERED: LEVOTHYROXINE SODIUM 0.1 MG TABLET PO SCH ×2 (06:00→10:00)
[2017-03-29] MEDS ORDERED: INFLUENZA ADLT QUAD (36MOS+) 2017-18 VAC 0.5 ML SYR IM PRN (06:40)
--- NOTE | 2017-03-29 07:00 | PDOC H&P ---
History of Present Illness Admission Date/PCP: 03/28/17 23:52 SRINATH CLIFTON MD History of Present Illness: MIKE SOUSA is a 82 year old female with past medical history of atrial fibrillation, hypertension, hyperlipidemia, diabetes mellitus, hypothyroidism who presents to the emergency department with complaints of shortness of breath. She reports that she has been short of breath for approximately the last month with increasing dyspnea on exertion, orthopnea, and increased lower extremity swelling. She reports that she has seen her primary care physician for some pain in her left arm which has yet to resolve. She does report some associated nausea and shortness of breath but no diaphoresis. She does report several episodes of dizziness. She is referred to hospital service for new onset heart failure. Patient's medications are currently undergoing reconciliation. Current list is automatically generated by [employer] and does not reflect an accurate description of her medications. Due to the urgent/emergent nature of her condition, she is admitted without a full list. Review bedside review of patient's medications reveals Lipitor, Januvia, Flexeril, Synthroid, aspirin, lisinopril, gabapentin, Glipizide, metoprolol, Eliquis, Toujeo Past Medical History Cardiac Medical History: Reports: Atrial Fibrillation - and A flutter, with pacer, Hyperlipidema, Hypertension Denies: Coronary Artery Disease, Myocardial Infarction Pulmonary Medical History: Reports: Chronic Obstructive Pulmonary Disease (COPD) , Pneumonia Denies: Asthma, Bronchitis Neurological Medical History: Reports: Migraine Denies: Seizures Endocrine Medical History: Reports: Diabetes Mellitus Type 2, Hypothyroidism, Obesity GI Medical History: Reports: Gastroesophageal Reflux Disease Musculoskeltal Medical History: Reports: Arthritis - HAND, KNEES, SHOULDER, NECK Psychiatric Medical History: Denies: Depression Hematology: Denies: Anemia Past Surgical History Past Surgical History: Reports: Section - X2, Hysterectomy, Orthopedic Surgery - carpel tunnel surgery, Pacemaker Social History Smoking Status: Former Smoker Number of Years Smokin Frequency of Alcohol Use: None Hx Recreational Drug Use: No Hx Prescription Drug Abuse: No - Advance Directive Resuscitation Status: Do Not Resuscitate Surrogate healthcare decision maker:: Jimmy Sousa, Family History Family History: CAD Parental Family History Reviewed: Yes Children Family History Reviewed: Yes Sibling(s) Family History Reviewed.: Yes Medication/Allergy Home Medications: Albuterol Sulfate [Proair Hfa Inhalation Aerosol 8.5 gm Mdi] 1 puff IH Q4 PRN Apixaban [Eliquis] 5 mg PO Q12 03/29/17 Aspirin [Aspirin EC] 81 mg PO DAILY 03/29/17 Atorvastatin Calcium 20 mg PO QHS 03/29/17 Cyclobenzaprine HCl 5 mg PO TID PRN 03/29/17 Gabapentin 300 mg PO TID 03/29/17 Glipizide [Glipizide ER] 2.5 mg PO DAILY 03/29/17 Glipizide [Glipizide Xl] 10 mg PO DAILY 03/29/17 Insulin Glargine,Hum.rec.anlog [[place]guido [place]] 9 unit SQ ASDIR 03/29/17 Levothyroxine Sodium 125 mcg PO DAILY 03/29/17 Lisinopril 10 mg PO DAILY 03/29/17 Metoprolol Succinate 25 mg PO DAILY 03/29/17 Sitagliptin Phosphate [Januvia 50 mg Tablet] 1 tab PO DAILY 03/29/17 Allergies/Adverse Reactions: No Known Allergies Allergy (Verified 03/28/17 21:06) Review of Systems Constitutional: ABSENT: chills, fever(s), headache(s), weight gain, weight loss Eyes: ABSENT: visual disturbances Ears: ABSENT: hearing changes Cardiovascular: PRESENT: as per HPI, dyspnea on exertion, edema, orthropnea. ABSENT: chest pain, palpitations Respiratory: PRESENT: dyspnea. ABSENT: cough, hemoptysis, sputum Gastrointestinal: ABSENT: abdominal pain, constipation, diarrhea, hematemesis, hematochezia, nausea, vomiting Genitourinary: ABSENT: dysuria, hematuria Musculoskeletal: ABSENT: joint swelling Integumentary: ABSENT: rash, wounds Neurological: PRESENT: dizziness. ABSENT: abnormal gait, abnormal speech, confusion, focal weakness, syncope Psychiatric: ABSENT: anxiety, depression, homidical ideation, suicidal ideation Endocrine: ABSENT: cold intolerance, heat intolerance, polydipsia, polyuria Hematologic/Lymphatic: ABSENT: easy bleeding, easy bruising Physical Exam Vital Signs: Temp Pulse Resp BP Pulse Ox 97.3 F 61 16 141/70 H 100 03/29/17 05:14 03/29/17 05:14 03/29/17 05:14 03/29/17 05:14 03/29/17 05:14 Intake & Output 03/27/17 03/28/17 03/29/17 06:59 06:59 06:59 Weight 82.9 kg General appearance: PRESENT: mild distress, obese, well-developed, well- nourished Head exam: PRESENT: atraumatic, normocephalic Eye exam: PRESENT: conjunctiva pink, EOMI, PERRLA. ABSENT: scleral icterus Ear exam: PRESENT: normal external ear exam Mouth exam: PRESENT: moist, tongue midline Teeth exam: PRESENT: edentulous Neck exam: PRESENT: JVD. ABSENT: lymphadenopathy, thyromegaly, tracheal deviation Respiratory exam: PRESENT: rales, symmetrical, tachypnea, unlabored. ABSENT: rhonchi, wheezes Cardiovascular exam: PRESENT: irregular rhythm, +S1, +S2, systolic murmur. ABSENT: diastolic murmur, rubs Pulses: PRESENT: normal dorsalis pedis pul Vascular exam: PRESENT: normal capillary refill GI/Abdominal exam: PRESENT: hypoactive bowel sounds, normal bowel sounds, soft. ABSENT: distended, guarding, mass, Solis's sign, organolmegaly, rebound, rigid, tenderness Rectal exam: PRESENT: deferred Extremities exam: PRESENT: full ROM, +1 edema. ABSENT: calf tenderness, clubbing Neurological exam: PRESENT: alert, awake, oriented to person, oriented to place , oriented to time, oriented to situation, CN II-XII grossly intact. ABSENT: motor sensory deficit Psychiatric exam: PRESENT: appropriate affect, normal mood. ABSENT: homicidal ideation, suicidal ideation Skin exam: PRESENT: dry, intact, warm. ABSENT: cyanosis, rash Results Laboratory Results: 03/29/17 00:50 TSH 2.28 03/29/17 03/29/17 00:50 00:50 Creatine Kinase 64 CK-MB (CK-2) 1.70 Troponin I < 0.012 02/03/14 03/28/17 03/28/17 12:15 17:50 17:50 WBC 8.5 Hgb 12.0 Hct 36.7 Plt Count 190 Sodium 144.0 Potassium 4.4 Chloride 109 H Carbon Dioxide 25 Anion Gap 10 BUN 28 H Creatinine 1.15 Glucose 69 L Hemoglobin A1c % 7.3 H Calcium 9.9 Total Bilirubin 1.2 Direct Bilirubin 0.4 AST 27 ALT 28 Alkaline Phosphatase 108 Creatine Kinase 83 CK-MB (CK-2) Troponin I NT-Pro-B Natriuret Pep Total Protein 7.3 Albumin 4.4 TSH 03/28/17 03/29/17 17:50 00:50 WBC Hgb Hct Plt Count Sodium Potassium Chloride Carbon Dioxide Anion Gap BUN Creatinine Glucose Hemoglobin A1c % Calcium Total Bilirubin Direct Bilirubin AST ALT Alkaline Phosphatase Creatine Kinase CK-MB (CK-2) 1.96 Troponin I < 0.012 NT-Pro-B Natriuret Pep 1440 H Total Protein Albumin TSH 2.28 Impressions: Chest X-Ray 03/28/17 16:54 IMPRESSION: CARDIAC ENLARGEMENT WITHOUT FAILURE. Elbow X-Ray 03/28/17 21:58 IMPRESSION: No radiographic evidence of acute fracture. Assessment & Plan - Diagnosis (1) CHF (congestive heart failure) Qualifiers: Congestive heart failure type: unspecified Congestive heart failure chronicity: unspecified Qualified Code(s): I50.9 - Heart failure, unspecified Is this a current diagnosis for this admission?: Yes Plan: Patient is currently on Lipitor, lisinopril, metoprolol. Place patient on Lasix Obtain echocardiogram Daily education strict I/O (2) IDDM (insulin dependent diabetes mellitus) Is this a current diagnosis for this admission?: Yes Plan: Check A1c Normally on Toujeo, glipizide Accu-Cheks (3) A-fib Qualifiers: Atrial fibrillation type: chronic Qualified Code(s): I48.2 - Chronic atrial fibrillation Is this a current diagnosis for this admission?: Yes Plan: On metoprolol and Eliquis (4) Hypertension Qualifiers: Hypertension type: essential hypertension Qualified Code(s): I10 - Essential (primary) hypertension Is this a current diagnosis for this admission?: Yes Plan: On metoprolol, lisinopril (5) Hyperlipidemia Qualifiers: Hyperlipidemia type: unspecified Qualified Code(s): E78.5 - Hyperlipidemia , unspecified Is this a current diagnosis for this admission?: Yes Plan: Check FLP (6) Hypothyroidism Qualifiers: Hypothyroidism type: unspecified Qualified Code(s): E03.9 - Hypothyroidism , unspecified Is this a current diagnosis for this admission?: Yes Plan: Check TSH (7) Hypoxemia Is this a current diagnosis for this admission?: Yes Plan: Oxygen as needed (8) S/P cardiac pacemaker procedure Is this a current diagnosis for this admission?: Yes - Time Time Spent: 30 to 50 Minutes Medications reviewed and adjusted accordingly: Yes Anticipated discharge: Home Within: within 72 hours - Inpatient Certification Based on my medical assessment, after consideration of the patient's comorbidities, presenting symptoms, or acuity I expect that the services needed warrant INPATIENT care.: Yes I certify that my determination is in accordance with my understanding of Medicare's requirements for reasonable and necessary INPATIENT services [42 CFR 412.3e].: Yes Medical Necessity: Need For Continuous Telemetry Monitoring Post Hospital Care: D/C Data Center Manager Documentation
[2017-03-29 08:20] LABS: CREATINE KINASE MB 1.62 ng/mL (<4.55)
[2017-03-29 08:28] LABS: TROPONIN I < 0.012 ng/mL
[2017-03-29] MEDS ORDERED: ASPIRIN 325 MG TABLET, ENT COATED PO SCH (10:00)
[2017-03-29] MEDS ORDERED: APIXABAN 5 MG TABLET PO SCH (10:00)
[2017-03-29] MEDS ORDERED: LISINOPRIL 10 MG TABLET PO SCH (10:00)
[2017-03-29] MEDS ORDERED: FUROSEMIDE INJ/PF 40 MG/4 ML SDV IV SCH (10:00)
[2017-03-29] MEDS ORDERED: (PENDING PHARMACY ID) (Divalproex Sodium [Depakote] 125 MG) PO SCH (10:00)
[2017-03-29] MEDS ORDERED: METOPROLOL SUCCINATE 25 MG TAB.SR.24H PO SCH (10:00)
[2017-03-29] MEDS ORDERED: INSULIN GLARGINE,HUM.REC.ANLOG 1,000 UNIT/10 ML UNIT SUBCUT ONE (10:08)
[2017-03-29] MEDS: DOCUSATE SODIUM 100 MG CAPSULE PO SCH (10:17)
[2017-03-29] MEDS: FUROSEMIDE 40 MG TABLET PO SCH (10:17)
[2017-03-29] MEDS: INSULIN GLARGINE,HUM.REC.ANLOG 300 UNIT/3 ML INSULN.PEN SUBCUT SCH (10:18)
[2017-03-29] MEDS ORDERED: (PENDING PHARMACY ID) (Cyclobenzaprine Hcl [Cyclobenzaprine Hcl] 5 MG) PO PRN (10:52)
[2017-03-29] MEDS ORDERED: ALBUTEROL SULFATE HFA (90 MCG/PUFF) 200 PUFF/8.5 GM MDI IH PRN (10:52)
[2017-03-29] MEDS ORDERED: CYCLOBENZAPRINE HCL 10 MG TABLET PO PRN (11:06)
--- NOTE | 2017-03-29 11:39 | PROGRESS NOTE E ---
Progress Note NAME: MIKE ARMSTRONG : 1935 AGE: 82Y DATE: 03/29/2017 ROOM: 406 SUBJECTIVE: The patient is currently lying in bed. She states that she feels better today than when she came in. The patient is having no shortness of breath at rest, which is some improvement. The patient denies any nausea, vomiting, diarrhea, no dizziness or chest pain, no fevers or chills. The patient has been afebrile, her blood pressures have been in a good range, and the patient does not voice any concerns at this time. REVIEW OF SYSTEMS: The rest of the review of systems is negative. MEDICATIONS: Medications have been reviewed. OBJECTIVE: GENERAL: The patient is an 82-year-old female who is awake, alert, and oriented to person, place, time, situation. She is verbal, conversational, does not appear to be in any acute distress. VITAL SIGNS: As follows: Temperature is 98.2, pulse 57, respirations 16, blood pressure 127/41, oxygen saturation is 100% on room air. SKIN: Warm and dry. No rash, is not diaphoretic. HEENT: Pupils equal, round, and reactive to light and accommodation. Conjunctiva is pink. There is no evidence of JVP. CARDIOVASCULAR: Heart is regular. There is no murmur or rub. CHEST: The patient does have some bilateral basal crackles. ABDOMEN: Soft, nontender, nondistended. BACK: No CVA tenderness or sacral edema. EXTREMITIES: No clubbing or cyanosis. The patient does have trace bilateral lower extremity pitting edema. PSYCHIATRIC: Appropriate affect. Pleasant mood. DIAGNOSTICS: Lab values are as follows. Hematology obtained on 03/28/2017: WBCs are 8.5, hemoglobin 12.0, hematocrit is 36.1, platelet count is 190,000. Chemistry obtained on 03/28/2017: Sodium is 144, potassium 4.4, chloride is 109, carbon dioxide 25, BUN 28, creatinine is 1.15, glucose 69, calcium is 9.9, bilirubin is 1.2, AST 27, ALT is 28, alk phos 108, CK 83, CK MB is 64, troponin 0.012, total protein 7.3, albumin 4.4, TSH is 2.28. IMPRESSION AND PLAN: 1. ACUTE ON CHRONIC, MOST LIKELY SYSTOLIC CONGESTIVE HEART FAILURE. Currently awaiting echocardiogram. Will continue the patient's home medications, give yet another dose of IV diuresis and follow. 2. DIABETES MELLITUS, TYPE 2. Will continue the patient's home medications and follow. 3. CHRONIC ATRIAL FIBRILLATION. The patient is on metoprolol as well as Eliquis. The patient is rate controlled. 4. HYPERTENSION. Will continue the patient's home blood pressure medications. Blood pressure is in a good range. 5. HYPERLIPIDEMIA. Will continue the patient's statin. 6. HYPOTHYROIDISM. Will continue the patient's levothyroxine. 7. ACUTE HYPOXEMIC RESPIRATORY FAILURE. The patient is now compensated after diuresis. 8. PACEMAKER PLACEMENT. The patient is bi-vent paced. DISPOSITION: THE PATIENT IS A DO NOT RESUSCITATE/DO NOT INTUBATE. Pending the patient's symptomatology and diagnostic findings, will re-evaluate in the a.m. Time spent on this followup, including assessment/plan, physical examination, patient education, review of records, and family meeting, is 30 minutes. DICTATING PHYSICIAN: BULMARO BUSH NP [id number] PHY#: [id number] ID: [id number] JOB#: [id number] ACCT: [id number] cc: >
[2017-03-29] MEDS ORDERED: FUROSEMIDE INJ/PF 40 MG/4 ML SDV IV ONE (12:00)
[2017-03-29] MEDS: INSULIN LISPRO 100 UNIT/ML 3 ML VIAL SUBCUT PRN ×2 (13:09→22:57)
[2017-03-29] MEDS: GABAPENTIN 300 MG CAPSULE PO SCH ×2 (13:09→22:57)
[2017-03-29 14:12] LABS: CREATINE KINASE MB 1.71 ng/mL (<4.55)
[2017-03-29 14:19] LABS: TROPONIN I < 0.012 ng/mL
--- NOTE | 2017-03-29 20:33 | XCELERA REPORT ---
[address] [address] Transthoracic Echocardiogram Report Name: MIKE ARMSTRONG Age: 82 yrs Gender: Female : 1935 Patient Status: Inpatient Patient Location: [address] [place] [address] Study Date: 03/29/2017 09:50 AM Height: 62 in Weight: 191 lb BSA: 1.9 m2 Procedure: A complete two-dimensional transthoracic echocardiogram was performed (2D, M-mode, spectral and color flow Doppler). The study was technically difficult with many images being suboptimal in quality. Reason For Study: NEW CHF Ordering Physician: DEEPALI VILLAR Performed By: Yoselin Cano Interpretation Summary The study was technically difficult with many images being suboptimal in quality. Left ventricular systolic function is borderline reduced. Doppler measurements suggest pseudonormalized left ventricular relaxation, which is associated with grade II/IV or mild to moderate diastolic dysfunction There is mild concentric left ventricular hypertrophy. The left ventricle is grossly normal size. Regional wall motion abnormalities cannot be excluded due to limited visualization. The right ventricle is mildly dilated. The right ventricular systolic function is normal. The left atrium is moderately dilated. The right atrium is moderately dilated. There is a mild to moderate amount of mitral regurgitation There is no mitral valve stenosis. There is a mild amount of aortic regurgitation There is no aortic valve stenosis There is a moderate amount of tricuspid regurgitation There is moderate to severe pulmonary hypertension by echo Right ventricular systolic pressure is estimated to be elevated at 50- 60mmHg. There is no pericardial effusion. MMode/2D Measurements & Calculations RVDd: 2.7 cm LVIDd: 4.7 cm FS: 37.0 % Ao root diam: 2.6 cm IVSd: 1.3 cm LVIDs: 3.0 cm EDV(Teich): 104.6 ml LVPWd: 1.3 cm ESV(Teich): 34.7 ml Ao root area: 5.2 cm2 EF(Teich): 66.9 % LA dimension: 4.1 cm Doppler Measurements & Calculations MV E max akil: MV P1/2t max akil: Ao V2 max: AI max akil: 122.4 cm/sec 122.9 cm/sec 102.5 cm/sec 188.0 cm/sec MV A max akil: MV P1/2t: 54.3 msec Ao max PG: AI max P.5 cm/sec 4.2 mmHg 14.1 mmHg MV E/A: 3.3 MVA(P1/2t): 4.1 cm2 AI dec slope: MV dec slope: 663.2 cm/sec2 41.5 cm/sec2 AI P1/2t: 1328 msec LV V1 max PG: PA V2 max: TR max akil: 1.4 mmHg 59.7 cm/sec 381.4 cm/sec LV V1 max: PA max P.4 mmHg TR max P.7 cm/sec 58.2 mmHg Left Ventricle The left ventricle is grossly normal size. There is mild concentric left ventricular hypertrophy. Left ventricular systolic function is borderline reduced. Doppler measurements suggest pseudonormalized left ventricular relaxation, which is associated with grade II/IV or mild to moderate diastolic dysfunction. Regional wall motion abnormalities cannot be excluded due to limited visualization. Right Ventricle The right ventricle is mildly dilated. There is normal right ventricular wall thickness. The right ventricular systolic function is normal. Atria The right atrium is moderately dilated. The left atrium is moderately dilated. Interarterial septum not well visualized and not well dopplered. Cannot comment on ASD/PFO presence. Mitral Valve The mitral valve is grossly normal. There is no mitral valve stenosis. There is a mild to moderate amount of mitral regurgitation. Aortic Valve The aortic valve is sclerotic, but shows no functional abnormality. There is no aortic valve stenosis. There is a mild amount of aortic regurgitation. Tricuspid Valve The tricuspid valve is not well visualized secondary to technical limitations. There is no tricuspid stenosis. There is a moderate amount of tricuspid regurgitation. There is moderate to severe pulmonary hypertension by echo. Right ventricular systolic pressure is estimated to be elevated at 50-60mmHg. Pulmonic Valve The pulmonic valve is not well visualized. Great Vessels The aortic root is not well visualized. The inferior vena cava appeared normal and decreased > 50% with respiration (RAP 5-10 mmHg). Effusions There is no pericardial effusion. : DEEPALI VILLAR > Catrachito Knox
[2017-03-29] MEDS ORDERED: ATORVASTATIN CALCIUM 20 MG TABLET PO SCH ×2 (22:00)
[2017-03-29] MEDS: APIXABAN 5 MG TABLET PO SCH (22:57)
[2017-03-30] MEDS ORDERED: LEVOTHYROXINE SODIUM 0.1 MG TABLET PO SCH (06:00)
[2017-03-30] MEDS: GABAPENTIN 300 MG CAPSULE PO SCH ×2 (06:00→13:07)
[2017-03-30] MEDS ORDERED: LEVOTHYROXINE SODIUM 0.025 MG TABLET PO SCH (06:00)
[2017-03-30] MEDS ORDERED: (PENDING PHARMACY ID) (Levothyroxine Sodium [Levothyroxine Sodium] 125 MCG) PO SCH (08:00)
[2017-03-30 08:11] LABS: ANION GAP 10 (5-19); BLOOD UREA NITROGEN 39 mg/dL (7-20); CALCIUM 9.5 mg/dL (8.4-10.2); CARBON DIOXIDE 31 mmol/L (22-30); CHLORIDE 102 mmol/L (98-107); CHOLESTEROL 106.31 mg/dL (0-200); GLUCOSE 78 mg/dL (75-110); POTASSIUM 3.9 mmol/L (3.6-5.0); SODIUM 142.8 mmol/L (137-145); TRIGLYCERIDES 104 mg/dL (<150)
[2017-03-30 08:22] LABS: DIRECT LDL 55 mg/dL (<100)
[2017-03-30] MEDS: DOCUSATE SODIUM 100 MG CAPSULE PO SCH (09:58)
[2017-03-30] MEDS: APIXABAN 5 MG TABLET PO SCH (09:58)
[2017-03-30] MEDS: INSULIN GLARGINE,HUM.REC.ANLOG 300 UNIT/3 ML INSULN.PEN SUBCUT SCH (09:58)
[2017-03-30] MEDS: FUROSEMIDE 40 MG TABLET PO SCH (09:59)
[2017-03-30] MEDS ORDERED: LISINOPRIL 10 MG TABLET PO SCH (10:00)
[2017-03-30] MEDS ORDERED: GLIPIZIDE XL 2.5 MG TAB.ER.24 PO SCH (10:00)
[2017-03-30] MEDS ORDERED: METOPROLOL SUCCINATE 25 MG TAB.SR.24H PO SCH (10:00)
[2017-03-30] MEDS ORDERED: ASPIRIN 81 MG TABLET, ENT COATED PO SCH (10:00)
[2017-03-30] MEDS ORDERED: SITAGLIPTIN PHOSPHATE 50 MG TABLET PO SCH (10:00)
[2017-03-30] MEDS ORDERED: POTASSIUM CHLORIDE 10 MEQ TABLET.SA PO ONE (12:00)
[2017-03-30 12:25] VITALS: BP 96/45
--- NOTE | 2017-03-30 13:13 | DISCHARGE SUMMARY E ---
Discharge Summary NAME: MIKE ARMSTRONG : 1935 AGE: 82Y ADMITTED: 03/28/2017 DISCHARGED: 03/30/2017 CODE STATUS: DO NOT RESUSCITATE/DO NOT INTUBATE. PRIMARY CARE PROVIDER: Dr. Solano OUTPATIENT SENIOR RESIDENT CARE DIRECTOR: Dr. Soriano DISCHARGE DIAGNOSES: 1. Moderate to severe pulmonary hypertension. 2. Igpnm-[id number] diastolic congestive heart failure. 3. Diabetes mellitus type 2. 4. Chronic atrial fibrillation. 5. Hypertension. 6. Hyperlipidemia. 7. Hypothyroidism. 8. Ftosc-[id number] hypoxemic respiratory failure secondary to #2. The patient is now compensated. 9. History of pacemaker placement with subsequent biventricular pacing. 10. High suspicion for obstructive sleep apnea. 11. Osteoarthritis. 12. Chronic kidney disease stage III with a baseline creatinine around 1.5. DISCHARGE MEDICATIONS: 1. Lasix 40 mg p.o. daily, 30 tablets with 0 refills. 2. Potassium chloride 20 mEq p.o. daily. 3. Januvia 50 mg p.o. daily. 4. Toprol XL 25 mg p.o. daily. 5. Lisinopril 10 mg p.o. daily. 6. Levothyroxine 125 mcg p.o. daily. 7. Toujeo 9 units subcutaneous daily. 8. Glipizide XL 10 mg p.o. daily. 9. Glipizide ER 2.5 mg daily as directed. 10. Gabapentin 300 mg p.o. q.8 hours. 11. Flexeril 5 mg p.o. t.i.d. p.r.n. 12. Lipitor 20 mg p.o. at hour of sleep. 13. Aspirin 81 mg p.o. daily. 14. Eliquis 5 mg p.o. q.12 hours. 15. ProAir HFA 1 puff inhalation q.4 hours p.r.n. DIET: Heart healthy, diabetic as tolerated. ACTIVITY: As tolerated. DIAGNOSTICS: Lab values are as follow: Hematology obtained on 03/28/2017: WBCs are 8.5, hemoglobin 12.0, hematocrit is 37.5, platelet count is 190,000. Chemistry obtained on 03/30/2017: Sodium is 142, potassium 3.9, chloride is 102, carbon dioxide 31, BUN 39, creatinine is 1.56, glucose 78, A1c is 7.5, calcium is 9.5, magnesium is 2.0, BNP is 656, triglycerides are 104, cholesterol 106, LDL 55, VLDL is 21, HDL is 31, TSH is 2.28, bilirubin is 1.2, AST 27, ALT is 28, alk phos 108, CK 83, CK-MB 1.70, troponin is 0.012, total protein 7.3, albumin 4.4. Urinalysis obtained on 03/28/2017: Color yellow, appearance clear, pH 6.0, specific gravity 1.009, protein negative, glucose negative, ketones negative, occult blood small, nitrate negative, bilirubin negative, urobilinogen negative, leukocyte esterase negative, WBC 1, RBC 0, epithelial squamous cells less than 1, mucous rare, ascorbic acid negative. Microbiology: Urine culture obtained on 03/28/2017 is negative. Chest x-ray obtained on 03/28/2017 reveals cardiac enlargement without overt failure. Elbow x-ray obtained on 03/28/2017 reveals no radiographic evidence of acute fracture. EKG obtained on 03/28/2017 reveals atrial ventricular dual paced. Echocardiogram obtained on 03/29/2017 reveals mild to moderate diastolic dysfunction with moderately dilated left atrium, mild amount of aortic regurgitation, moderate amount of tricuspid regurgitation with moderate to severe pulmonary hypertension with elevated RV pressures. PHYSICAL EXAMINATION: GENERAL: On examination, the patient is a well-developed, reasonably nourished, 82-year-old female who is awake, alert, and oriented to person, place, time, and situation. She is verbal, conversational, ambulatory, and does not appear to be in any acute distress. VITAL SIGNS: Temperature is 97.7, pulse 59, respirations 18, blood pressure 118/44, oxygen saturation is 95% on room air. SKIN: Warm and dry. No rash. She is not diaphoretic. HEENT: Pupils equal, round, reactive to light and accommodation. Conjunctivae are pink. There is no evidence of JVP. CARDIOVASCULAR: Heart is regular. There is no murmur or rub. CHEST: Symmetrical, unlabored, diminished. ABDOMEN: Soft, nontender, nondistended. BACK: No CVA tenderness or sacral edema. EXTREMITIES: The patient does have trace lower extremity edema. HISTORY OF PRESENT ILLNESS: The patient is an 82-year-old female with a past medical history of chronic obstructive pulmonary disease as well as atrial fibrillation. The patient presented to the emergency department with a chief complaint of shortness of breath. The patient stated that for the last month she had increased dyspnea on exertion, orthopnea, lower extremity swelling. The patient stated that she had been seen by her primary care provider for some pain in her left arm which is yet to resolve. The patient does report to have some associated nausea and shortness of breath but no diaphoresis. The patient had several episodes of dizziness and was referred to the hospitalist due to evidence of heart failure. HOSPITAL COURSE: The patient was admitted to continuous telemetry unit. The patient was diuresed with IV Lasix with significant improvement of symptoms. The patient was able to sleep in a bed for the first time in quite awhile at 20 degrees elevation, which is a significant improvement. The patient ambulated with physical therapy without issue. The patient was no longer requiring O2 and was able to fully complete sentences. Upon discussion with the patient, it appears that she had concern for kidney weakness for quite awhile and did explain that at times if there are heart issues, there will also be subsequent kidney. The patient is understandable and agreeable to this and the patient has received congestive heart failure education, and is eager for discharge. It appears that the patient does have pulmonary hypertension and findings that are consistent with sleep apnea as well. Highly encouraged the patient to have an outpatient sleep study which can be arranged through her organizational effectiveness consultant as this will overall help the management of the patient's congestive heart failure. Patient is agreeable to this plan. The patient also has a long history of osteoarthritis. She has seen Dr. Montez in the past and received cortisone injections. The patient is complaining of exacerbation of her elbow pain which has been imaged on multiple occasions without evidence of acute injury. This can be evaluated by Dr. Montez on an outpatient basis as well. DISCHARGE PLANNING: The patient is to followup with Dr. Soriano within 1 week for hospital followup. The patient has been started back on diuretic therapy as well as potassium, and the patient should be arranged for outpatient sleep study. Time spent on this discharge including assessment, plan, physical examination, patient education, review of records, and family meeting is 25 minutes. DICTATING PHYSICIAN: BULMARO BUSH NP [id number] Y#: [id number] ID: [id number] JOB#: [id number] ACCT: [id number] cc:DEEPALI VILLAR M.D., MICHAEL NP > DELBERT
== END 2017-03-30 13:31 | disposition home or self-care (01) | DRG 291 ==
LOC: ER 15:10 → EH 23:52 → 4N 03-29 05:12
PROVIDERS: ADMIT Family Medicine; ATTEND Family Medicine
DX: I13.0 Hypertensive heart and chronic kidney disease with heart failure and stage 1 through stage 4 chronic kidney disease, or unspecified chronic kidney disease (principal); I50.33 Acute on chronic diastolic (congestive) heart failure; J96.21 Acute and chronic respiratory failure with hypoxia; Z66 Do not resuscitate; I27.20 Pulmonary hypertension, unspecified; N18.3 Chronic kidney disease, stage 3 (moderate); E11.22 Type 2 diabetes mellitus with diabetic chronic kidney disease; I48.2 Chronic atrial fibrillation; E78.00 Pure hypercholesterolemia, unspecified; E03.9 Hypothyroidism, unspecified; G47.33 Obstructive sleep apnea (adult) (pediatric); M19.90 Unspecified osteoarthritis, unspecified site; I08.2 Rheumatic disorders of both aortic and tricuspid valves; J44.9 Chronic obstructive pulmonary disease, unspecified; G43.909 Migraine, unspecified, not intractable, without status migrainosus; E66.9 Obesity, unspecified; Z68.34 Body mass index [BMI] 34.0-34.9, adult; K21.9 Gastro-esophageal reflux disease without esophagitis; M19.049 Primary osteoarthritis, unspecified hand; M17.0 Bilateral primary osteoarthritis of knee; M19.019 Primary osteoarthritis, unspecified shoulder; M47.812 Spondylosis without myelopathy or radiculopathy, cervical region; Z95.0 Presence of cardiac pacemaker; Z79.4 Long term (current) use of insulin; Z79.899 Other long term (current) drug therapy; Z79.82 Long term (current) use of aspirin; Z90.710 Acquired absence of both cervix and uterus; Z87.891 Personal history of nicotine dependence; Z82.49 Family history of ischemic heart disease and other diseases of the circulatory system
CPT/HCPCS: 36415; 71046; 80048; 80053; 80061; 81001; 82550; 82553; 82962; 83036; 83735; 83880; 84443; 84484; 85025; 87086; 93005; 93010; 93306; 99285; G8978-GP; G8979-GP; G8980-GP; J1815; J1940; J3490

== ENCOUNTER 2017-04-20 20:06 | Inpatient (IN) | payer MEDICARE ==
--- NOTE | 2017-04-20 20:23 | ER Document Report ---
ED Medical Screen (RME) - General Chief Complaint: General Weakness Stated Complaint: DIFFICULTY BREATHING Notes: 82-year-old female with increased confusion. Report from she is normal. No history of dementia. Was seen here on March 28 and discharged on the . Has gotten more and more confused today. Very lethargic. I have greeted and performed a rapid initial assessment of this patient. A comprehensive ED assessment and evaluation of the patient, analysis of test results and completion of the medical decision making process will be conducted by additional ED providers. TRAVEL OUTSIDE OF THE [place] IN LAST 30 DAYS: No - Related Data Allergies/Adverse Reactions: No Known Allergies Allergy (Verified 03/28/17 21:06) Past Medical History - Past Medical History Cardiac Medical History: Reports: Hx Atrial Fibrillation - and A flutter, with pacer, Hx Hypercholesterolemia, Hx Hypertension Denies: Hx Coronary Artery Disease, Hx Heart Attack Pulmonary Medical History: Reports: Hx COPD, Hx Pneumonia Denies: Hx Asthma, Hx Bronchitis Neurological Medical History: Reports: Hx Cerebrovascular Accident - Mini- strokes by scans. Pt never aware of stroke symptoms., Hx Migraine. Denies: Hx Seizures Endocrine Medical History: Reports: Hx Diabetes Mellitus Type 2, Hx Hypothyroidism Renal/ Medical History: Denies: Hx Peritoneal Dialysis GI Medical History: Reports: Hx Gastroesophageal Reflux Disease Musculoskeltal Medical History: Reports Hx Arthritis - HAND, KNEES, SHOULDER, NECK Psychiatric Medical History: Denies: Hx Depression Past Surgical History: Reports: Hx Cardiac Surgery - pacemaker 08/02, Hx Section - X2, Hx Hysterectomy, Hx Orthopedic Surgery - carpel tunnel surgery, Hx Pacemaker - Immunizations Hx Diphtheria, Pertussis, Tetanus Vaccination: Yes History of Influenza Vaccine for 12/2016 - 05/2017 Season: No Review of Systems - Review of Systems Constitutional: Chills, Malaise, Weakness Cardiovascular: Heart racing, Dizziness, Lightheaded Respiratory: Cough, Short of breath Physical Exam - Vital signs Vitals: Pulse Resp BP Pulse Ox 140 H 23 H 73/48 L 99 04/20/17 20:18 04/20/17 20:18 04/20/17 20:18 04/20/17 20:18 Interpretation: Tachycardic - General General appearance: Lethargic - Respiratory Respiratory status: Tachypnea Breath sounds: Decreased air movement - Cardiovascular Rhythm: Tachycardia Murmur: No - Skin Skin Temperature: Cold Skin Moisture: Dry Skin Color: Pale Course - Re-evaluation Re-evalutation: 04/20/17 20:29 Ill-appearing 82-year-old female. Hypotensive. Cold to the touch. Possible septic. Requesting immediate bed. - Vital Signs Vital signs: Temp Pulse Resp BP Pulse Ox 140 H 23 H 73/48 L 99 04/20/17 20:18 04/20/17 20:18 04/20/17 20:18 04/20/17 20:18
[2017-04-20] MEDS ORDERED: NORMAL SALINE 1000 ML 1,000 ML IV ONE (20:30)
[2017-04-20] MEDS ORDERED: RINGERS SOLUTION,LACTATED 1,000 ML IV ONE (21:26)
--- NOTE | 2017-04-20 21:30 | ER Document Report ---
ED General - General Chief Complaint: General Weakness Stated Complaint: DIFFICULTY BREATHING Time Seen by Provider: 04/20/17 20:25 Cannot obtain history due to: Unstable vital signs, Altered mental status Notes: Patient is an 82-year-old female who presents in the custody of her with refusal to eat and drink for the past several days as well as general malaise. The states that he has continued to offer her food and drink throughout the past several days which she has refused. He states that she tried to eat a small amount of Jell-O today and vomited. He is uncertain of what else has been going on. The patient herself is extremely disoriented, unstable and unable to provide meaningful history. TRAVEL OUTSIDE OF THE [place] IN LAST 30 DAYS: No - Related Data Allergies/Adverse Reactions: No Known Allergies Allergy (Verified 03/28/17 21:06) Past Medical History - General Information source: Relative - Social History Smoking Status: Never Smoker Chew tobacco use (# tins/day): No Frequency of alcohol use: None Drug Abuse: None Lives with: Spouse/Significant other Family History: CAD Patient has suicidal ideation: No Patient has homicidal ideation: No - Past Medical History Cardiac Medical History: Reports: Hx Atrial Fibrillation - and A flutter, with pacer, Hx Hypercholesterolemia, Hx Hypertension Denies: Hx Coronary Artery Disease, Hx Heart Attack Pulmonary Medical History: Reports: Hx COPD, Hx Pneumonia Denies: Hx Asthma, Hx Bronchitis Neurological Medical History: Reports: Hx Cerebrovascular Accident - Mini- strokes by scans. Pt never aware of stroke symptoms., Hx Migraine. Denies: Hx Seizures Endocrine Medical History: Reports: Hx Diabetes Mellitus Type 2, Hx Hypothyroidism Renal/ Medical History: Denies: Hx Peritoneal Dialysis GI Medical History: Reports: Hx Gastroesophageal Reflux Disease Musculoskeltal Medical History: Reports Hx Arthritis - HAND, KNEES, SHOULDER, NECK Psychiatric Medical History: Denies: Hx Depression Past Surgical History: Reports: Hx Cardiac Surgery - pacemaker 08/02, Hx Section - X2, Hx Hysterectomy, Hx Orthopedic Surgery - carpel tunnel surgery, Hx Pacemaker - Immunizations Hx Diphtheria, Pertussis, Tetanus Vaccination: Yes Hx Pneumococcal Vaccination: 03/19/08 Review of Systems - Review of Systems -: Yes ROS unobtainable due to patient's medical condition Physical Exam - Vital signs Vitals: Pulse Resp BP Pulse Ox 140 H 23 H 73/48 L 99 04/20/17 20:18 04/20/17 20:18 04/20/17 20:18 04/20/17 20:18 Interpretation: Hypotensive, Tachycardic, Tachypneic Notes: PHYSICAL EXAMINATION: GENERAL: Appears extremely unwell, pale, listless, slow to respond, disoriented HEAD: Atraumatic, normocephalic. EYES: Pupils equal round and reactive to light, extraocular movements intact, sclera anicteric, conjunctiva are normal. ENT: nares patent, oropharynx clear without exudates. Extremely dry mucous membranes. NECK: Normal range of motion, supple without lymphadenopathy LUNGS: Breath sounds clear to auscultation bilaterally and equal. No wheezes rales or rhonchi. HEART: Irregularly irregular tachycardia without murmurs ABDOMEN: Soft, nontender, normoactive bowel sounds. No guarding, no rebound. No masses appreciated. EXTREMITIES: no pitting or edema. No cyanosis. NEUROLOGICAL: No focal neurological deficits. Moves all extremities spontaneously and on command. PSYCH: Somnolent, not oriented to place, year, president or family members at the bedside SKIN:cool skin, poor turgor Course - Re-evaluation Re-evalutation: 04/20/17 21:28 Patient presents profoundly ill in appearance, hypotensive, tachycardic, hypothermic extremely lethargic. She is not oriented to place, year, current president or situation. Patient also appears profoundly dehydrated. reports that she is refused all oral intake for at least the past 4 days and vomited when she attempted to eat Jell-O today. He reports that he seen a steady decline in the past 4 months but it became acutely worse in the past 1 week. On physical examination patient is noted to be with a ventricularly paced rhythm although quite tachycardic, irregularly irregular consistent with underlying A. fib with an associated paced rhythm. Dry mucous membranes. Abdominal exam without any focal abdominal tenderness or swelling. Will proceed with broad sepsis laboratories, begin empiric antibiotics with cefepime , aggressive IV fluids, chest x-ray, and reassess. I have discussed goals of care is with the and he stated that the patient has clearly stated repeatedly in the past in the presence of multiple family members that she does not want any highly invasive or aggressive maneuvers taken and is a DNR, DNI. 04/20/17 22:14 Patient's blood pressure is improving, currently 112 141 heart rate has decreased down to 110. Continues to be quite lethargic although color is improved from time of presentation. Awaiting laboratory results. Patient remains critically ill 04/20/17 23:21 Laboratories show findings consistent with HHS without any acidosis or anion gap but markedly elevated blood glucose. Thyroid studies within normal limits without evidence to suggest myxedema coma as the etiology of the patient's presentation. Although patient's troponin is elevated I suspect that this is demand mediated ischemia in the setting of profound dehydration, acute on chronic kidney injury, and HHS. I do not believe there is any indication for transfer to a cardiac catheterization center at this time. Will discuss with the hospitalist for admission. 04/21/17 02:24 Repeat labs show significant improvement, patient remains markedly improved. Dr. Alvarado has accepted the patient for hospitalization - Vital Signs Vital signs: Temp Pulse Resp BP Pulse Ox 140 H 19 98/52 L 99 04/20/17 20:18 04/21/17 03:03 04/21/17 03:03 04/21/17 03:03 - Laboratory Result Diagrams: 04/20/17 21:40 04/21/17 03:07 Laboratory results interpreted by me: 04/20/17 04/20/17 04/20/17 21:40 21:40 21:40 WBC 13.5 H MCHC 31.6 L RDW 15.8 H Seg Neutrophils % 87.4 H Lymphocytes % 5.5 L Absolute Neutrophils 11.8 H VBG pCO2 VBG HCO3 Sodium 127.0 L Potassium 6.7 H* Carbon Dioxide 13 L BUN 86 H Creatinine 2.49 H Est GFR ( Amer) 23 L Est GFR (Non-Af Amer) 19 L Glucose 802 H* Lactic Acid Calcium 8.1 L Total Bilirubin 1.4 H Direct Bilirubin 0.5 H AST 167 H ALT 207 H NT-Pro-B Natriuret Pep 2610 H Total Protein 5.2 L Albumin 2.9 L Free T3 pg/mL Urine Glucose (UA) Urine Blood 04/20/17 04/20/17 04/20/17 21:40 21:40 21:40 WBC MCHC RDW Seg Neutrophils % Lymphocytes % Absolute Neutrophils VBG pCO2 30.1 L VBG HCO3 14.4 L Sodium Potassium Carbon Dioxide BUN Creatinine Est GFR ( Amer) Est GFR (Non-Af Amer) Glucose Lactic Acid 2.9 H Calcium Total Bilirubin Direct Bilirubin AST ALT NT-Pro-B Natriuret Pep Total Protein Albumin Free T3 pg/mL 1.48 L Urine Glucose (UA) Urine Blood 04/20/17 04/21/17 23:33 01:05 WBC MCHC RDW Seg Neutrophils % Lymphocytes % Absolute Neutrophils VBG pCO2 VBG HCO3 Sodium 134.5 L Potassium 5.6 H D Carbon Dioxide 21 L BUN 83 H Creatinine 2.04 H Est GFR ( Amer) 28 L Est GFR (Non-Af Amer) 23 L Glucose 618 H* Lactic Acid Calcium Total Bilirubin Direct Bilirubin AST ALT NT-Pro-B Natriuret Pep Total Protein Albumin Free T3 pg/mL Urine Glucose (UA) >=500 H Urine Blood SMALL H - Diagnostic Test Radiology reviewed: Image reviewed, Reports reviewed Radiology results interpreted by me: 04/20/17 23:22 Chest x-ray: No acute infiltrate or pneumothorax - EKG Interpretation by Me Additional EKG results interpreted by me: 04/21/17 03:48 Irregular, ventricularly paced rhythm, rate 130 Critical Care Note - Critical Care Note Total time excluding time spent on procedures (mins): 40 Comments: Critical care time spent obtaining history from patient or surrogate, discussions with consultants, development of treatment plan with patient or surrogate, evaluation of patient's response to treatment, examination of patient , ordering and performing treatments and interventions, ordering and review of laboratory studies, re-evaluation of patient's condition, ordering and review of radiographic studies and review of old charts Discharge - Discharge Clinical Impression: Hyperosmolar non-ketotic state in patient with type 2 diabetes mellitus, Dehydration, Hypovolemic shock Altered mental status Qualifiers: Altered mental status type: delirium Qualified Code(s): R41.0 - Disorientation , unspecified Condition: Fair Disposition: ADMITTED INPATIENT [facility] Admitted: [facility]
[2017-04-20] MEDS ORDERED: CEFEPIME 2 GM/D5W RTU 2 GM/50 ML RTUPB IV ONE (22:00)
--- NOTE | 2017-04-20 22:07 | RADIOLOGY REPORT (SQ) ---
EXAM DESCRIPTION: CHEST SINGLE VIEW COMPLETED DATE/TIME: 04/20/2017 10:01 pm REASON FOR STUDY: sob COMPARISON: 03/28/2017 EXAM PARAMETERS: NUMBER OF VIEWS: One view. TECHNIQUE: Single frontal radiographic view of the chest acquired. RADIATION DOSE: NA LIMITATIONS: None. FINDINGS: LUNGS AND PLEURA: No opacities, masses or pneumothorax. No pleural effusion. MEDIASTINUM AND HILAR STRUCTURES: No masses. Contour normal. HEART AND VASCULAR STRUCTURES: Heart stable in size. Normal vasculature. BONES: No acute findings. HARDWARE: Stable. OTHER: No other significant finding. IMPRESSION: NO ACUTE RADIOGRAPHIC FINDING IN THE CHEST. NO SIGNIFICANT CHANGE FROM PRIOR STUDY. TECHNICAL DOCUMENTATION: JOB ID: [id number] [employer] All Rights Reserved
[2017-04-20 22:08] LABS: ABSOLUTE LYMPHOCYTES (AUTO) 0.7 10^3/uL (0.5-4.7); ABSOLUTE NEUT (AUTO) 11.8 10^3/uL (1.7-8.2); BASOPHILS % (AUTO) 0.1 % (0-2); HEMATOCRIT 43.6 % (36.0-47.0); HEMOGLOBIN 13.8 g/dL (12.0-15.5); LYMPHOCYTES % (AUTO) 5.5 % (13-45); MEAN CORPUSCULAR HEMOGLOBIN 28.5 pg (27.0-33.4); MEAN CORPUSCULAR HGB CONC 31.6 g/dL (32.0-36.0); MEAN CORPUSCULAR VOLUME 90 fl (80-97); PLATELET COUNT 171 10^3/uL (150-450); RED BLOOD COUNT 4.84 10^6/uL (3.72-5.28); RED CELL DISTRIBUTION WIDTH 15.8 % (11.5-14.0); SEGMENTED NEUTROPHILS % (AUTO) 87.4 % (42-78); TOTAL CELLS COUNTED % (AUTO) 100 %; WHITE BLOOD COUNT 13.5 10^3/uL (4.0-10.5)
[2017-04-20 22:09] LABS: VENOUS BLOOD BASE EXCESS -10.7 mmol/L; VENOUS BLOOD HCO3 14.4 mmol/L (20-32); VENOUS BLOOD PCO2 30.1 mmHg (35-63); VENOUS BLOOD PH 7.3 (7.30-7.42)
[2017-04-20 22:30] LABS: ALANINE AMINOTRANSFERASE 207 U/L (9-52); ALBUMIN 2.9 g/dL (3.5-5.0); ALKALINE PHOSPHATASE 48 U/L (38-126); ANION GAP 13 (5-19); ASPARTATE AMINO TRANSFERASE 167 U/L (14-36); BILIRUBIN,DIRECT 0.5 mg/dL (0.0-0.4); BILIRUBIN,TOTAL 1.4 mg/dL (0.2-1.3); BLOOD UREA NITROGEN 86 mg/dL (7-20); CALCIUM 8.1 mg/dL (8.4-10.2); CARBON DIOXIDE 13 mmol/L (22-30); CHLORIDE 101 mmol/L (98-107); CREATINE KINASE 96 U/L (30-135); TOTAL PROTEIN 5.2 g/dL (6.3-8.2)
[2017-04-20 22:51] LABS: FREE T3 1.48 pg/mL (2.77-5.27); FREE T4 (FREE THYROXINE) 0.98 ng/dL (0.78-2.19); GLUCOSE 802 mg/dL (75-110); POTASSIUM 6.7 mmol/L (3.6-5.0); TROPONIN I 0.168 ng/mL
[2017-04-20] MEDS ORDERED: DEXTROSE 40% GEL 15 GM TUBE PO PRN ×2 (22:53)
[2017-04-20] MEDS ORDERED: NORMAL SALINE 100 ML with INSULIN REGULAR, HUMAN 100 UNIT IV PRN ×2 (22:53)
[2017-04-20] MEDS ORDERED: GLUCAGON,HUMAN RECOMB 1 MG INJ IM PRN (22:53)
[2017-04-20] MEDS ORDERED: DEXTROSE 50%-WATER 25 GM/50 ML DISP.SYRIN IV PRN ×2 (22:53)
[2017-04-20] MEDS ORDERED: CALCIUM GLUCONATE 1000 MG/10 ML INJ IV ONE ×2 (22:54→23:07)
[2017-04-20 23:05] LABS: THYROID STIMULATING HORMONE 2.62 uIU/mL (0.47-4.68)
[2017-04-20] MEDS ORDERED: SODIUM BICARBONATE 8.4% INJ 50 MEQ/50 ML DISP.SYRIN IV ONE (23:05)
[2017-04-20] MEDS ORDERED: INSULIN REG, HUMAN 100 UNIT/ML 3 ML VIAL (PYX) IV ONE (23:08)
[2017-04-20] MEDS ORDERED: NORMAL SALINE 1000 ML 2,000 ML IV ONE (23:10)
[2017-04-20] MEDS ORDERED: INSULIN REG, HUMAN 100 UNIT/ML 3 ML VIAL (PYX) ONE (23:12)
[2017-04-21 00:04] LABS: APPEARANCE,URINE SLIGHTLY-CLOUDY; BILIRUBIN,URINE NEGATIVE (NEGATIVE); COLOR,URINE YELLOW; GLUCOSE, URINE >=500 mg/dL (NEGATIVE); KETONES,URINE NEGATIVE (NEGATIVE); LEUKOCYTE ESTERASE,URINE NEGATIVE (NEGATIVE); NITRITE,URINE NEGATIVE (NEGATIVE); PROTEIN,URINE NEGATIVE (NEGATIVE); URINE SPECIFIC GRAVITY 1.021; UROBILINOGEN,URINE NEGATIVE mg/dL (<2.0)
[2017-04-21 01:37] LABS: ANION GAP 7 (5-19); BLOOD UREA NITROGEN 83 mg/dL (7-20); CALCIUM 8.8 mg/dL (8.4-10.2); CARBON DIOXIDE 21 mmol/L (22-30); CHLORIDE 107 mmol/L (98-107); SODIUM 134.5 mmol/L (137-145)
[2017-04-21 01:58] LABS: GLUCOSE 618 mg/dL (75-110); POTASSIUM 5.6 mmol/L (3.6-5.0)
[2017-04-21] MEDS ORDERED: MAG HYDROX/AL HYDROX/SIMETH SUSP 30 ML UDCUP PO PRN (02:28)
[2017-04-21] MEDS ORDERED: IPRATROPIUM/ALBUTEROL 0.5-2.5 MG/3 ML AMPUL NEB PRN (02:28)
[2017-04-21] MEDS ORDERED: DEXTROSE 50%-WATER 25 GM/50 ML DISP.SYRIN IV PRN ×2 (02:28)
[2017-04-21] MEDS ORDERED: DEXTROSE 40% GEL 15 GM TUBE PO PRN ×2 (02:28)
[2017-04-21] MEDS ORDERED: ONDANSETRON HCL INJ/PF 4 MG/2 ML SDV IV PRN (02:28)
[2017-04-21] MEDS ORDERED: ACETAMINOPHEN 325 MG TABLET PO PRN (02:28)
[2017-04-21] MEDS ORDERED: GLUCAGON,HUMAN RECOMB 1 MG INJ IM PRN (02:28)
[2017-04-21] MEDS ORDERED: NORMAL SALINE 1000 ML 1,000 ML IV PRN (02:30)
[2017-04-21] MEDS ORDERED: HUM INSULIN NPH/REG INSULIN HM 100 UNIT/1 ML 3 ML SUBCUT ONE (02:32)
[2017-04-21] MEDS ORDERED: INSULIN REG, HUMAN 100 UNIT/ML 3 ML VIAL (PYX) IV ONE (02:32)
[2017-04-21 03:24] LABS: ANION GAP 10 (5-19); BLOOD UREA NITROGEN 79 mg/dL (7-20); CALCIUM 8.9 mg/dL (8.4-10.2); CARBON DIOXIDE 18 mmol/L (22-30); CHLORIDE 110 mmol/L (98-107); POTASSIUM 5.1 mmol/L (3.6-5.0); SODIUM 138.4 mmol/L (137-145)
[2017-04-21 03:31] LABS: GLUCOSE 426 mg/dL (75-110)
[2017-04-21] MEDS: GABAPENTIN 300 MG CAPSULE PO SCH ×3 (05:28→21:26)
[2017-04-21] MEDS ORDERED: NORMAL SALINE 1000 ML 1,000 ML IV ONE (05:30)
--- NOTE | 2017-04-21 05:50 | PDOC H&P ---
History of Present Illness Admission Date/PCP: 04/21/17 02:28 SRINATH CLIFTON MD Patient complains of: Altered mental status History of Present Illness: MIKE ARMSTRONG is a 82 year old female with a past medical history of diabetes, atrial fibrillation, status post permanent pacemaker placement, chronic kidney disease stage II and dementia. Patient presents with her who states she has been intolerant of food secondary to nausea and over the last 24 hours developed confusion and altered mental status, without focal neurologic deficit. She is brought to the emergency room for evaluation she is found to have profound dehydration and hypotension, a blood sugar greater than 800 without acidosis, hyperkalemia with a potassium of 6.7 without peak T waves , and acute on chronic renal failure. She is protecting her airway without acute distress. She receives 4 L of normal saline, IV insulin and referred to the hospitalist for admission. Past Medical History Cardiac Medical History: Reports: Atrial Fibrillation - and A flutter, with pacer, Hyperlipidema, Hypertension Denies: Coronary Artery Disease, Myocardial Infarction Pulmonary Medical History: Reports: Chronic Obstructive Pulmonary Disease (COPD) , Pneumonia Denies: Asthma, Bronchitis Neurological Medical History: Reports: Migraine Denies: Seizures Endocrine Medical History: Reports: Diabetes Mellitus Type 2, Hypothyroidism GI Medical History: Reports: Gastroesophageal Reflux Disease Musculoskeltal Medical History: Reports: Arthritis - HAND, KNEES, SHOULDER, NECK Psychiatric Medical History: Denies: Depression Hematology: Denies: Anemia Past Surgical History Past Surgical History: Reports: Section - X2, Hysterectomy, Orthopedic Surgery - carpel tunnel surgery, Pacemaker Social History Information Source: [facility], PENDING SALE TO [facility] Records Lives with: Spouse/Significant other Smoking Status: Never Smoker Frequency of Alcohol Use: None Hx Recreational Drug Use: No Hx Prescription Drug Abuse: No - Advance Directive Resuscitation Status: Do Not Resuscitate Family History Family History: CAD Parental Family History Reviewed: Yes Children Family History Reviewed: Yes Sibling(s) Family History Reviewed.: Yes Medication/Allergy Home Medications: Albuterol Sulfate [Proair HFA Inhalation Aerosol 8.5 gm MDI] 1 puff IH Q4 PRN Apixaban [Eliquis] 5 mg PO Q12 03/29/17 Aspirin [Aspirin EC] 81 mg PO DAILY 03/29/17 Atorvastatin Calcium 20 mg PO QHS 03/29/17 Cyclobenzaprine HCl 5 mg PO TID PRN 03/29/17 Gabapentin 300 mg PO Q8 03/29/17 Glipizide [Glipizide ER] 2.5 mg PO DAILY MDD TAKE WITH GLIPIZIDE XL 10MG Glipizide [Glipizide Xl] 10 mg PO DAILY MDD TAKE WITH GLIPIZIDE ER 2.5MG Insulin Glargine,Hum.rec.anlog [Serjio Busch] 9 unit SQ DAILY@0630 03/29/17 Levothyroxine Sodium 125 mcg PO ACBRKFST 03/29/17 Lisinopril 10 mg PO DAILY 03/29/17 Metoprolol Succinate 25 mg PO DAILY 03/29/17 Sitagliptin Phosphate [Januvia 50 mg Tablet] 50 mg PO DAILY 03/29/17 Furosemide [Lasix 40 mg Tablet] 40 mg PO DAILY #30 tablet 03/30/17 Potassium Chloride [Klor-Con M20] 20 meq PO DAILY #30 tab.er.prt 03/30/17 Allergies/Adverse Reactions: No Known Allergies Allergy (Verified 03/28/17 21:06) Review of Systems ROS unobtainable: Due to mental status Physical Exam Vital Signs: Temp Pulse Resp BP Pulse Ox 97.8 F 80 20 84/44 L 99 04/21/17 04:32 04/21/17 04:32 04/21/17 04:32 04/21/17 04:32 04/21/17 04:32 Intake & Output 04/19/17 04/20/17 04/21/17 11:59 11:59 11:59 Output Total 1100 Balance -1100 Weight 77.5 kg General appearance: PRESENT: mild distress, obese Head exam: PRESENT: atraumatic, normocephalic Eye exam: PRESENT: conjunctiva pink, EOMI, PERRLA. ABSENT: scleral icterus Ear exam: PRESENT: normal external ear exam Mouth exam: PRESENT: dry mucosa, neck supple, tongue midline Neck exam: ABSENT: carotid bruit, JVD, lymphadenopathy, thyromegaly Respiratory exam: PRESENT: clear to auscultation leandra. ABSENT: rales, rhonchi, wheezes Cardiovascular exam: PRESENT: RRR, tachycardia. ABSENT: bradycardia, diastolic murmur, rubs, systolic murmur Pulses: PRESENT: normal dorsalis pedis pul Vascular exam: PRESENT: normal capillary refill GI/Abdominal exam: PRESENT: normal bowel sounds, soft. ABSENT: distended, guarding, mass, organolmegaly, rebound, tenderness Rectal exam: PRESENT: deferred Extremities exam: PRESENT: full ROM. ABSENT: calf tenderness, clubbing, pedal edema Neurological exam: PRESENT: altered, CN II-XII grossly intact. ABSENT: alert, awake Psychiatric exam: ABSENT: agitated, anxious, homicidal ideation, suicidal ideation Focused psych exam: ABSENT: catatonic, pressured speech Skin exam: PRESENT: dry, intact, warm. ABSENT: cyanosis, rash Results Laboratory Results: 04/21/17 03:07 04/21/17 03:07 Sodium 138.4 Potassium 5.1 H Chloride 110 H Carbon Dioxide 18 L Anion Gap 10 BUN 79 H Creatinine 1.92 H Est GFR ( Amer) 30 L Est GFR (Non-Af Amer) 25 L Glucose 426 H* Calcium 8.9 Impressions: Chest X-Ray 04/20/17 20:26 IMPRESSION: NO ACUTE RADIOGRAPHIC FINDING IN THE CHEST. NO SIGNIFICANT CHANGE FROM PRIOR STUDY. Assessment & Plan - Diagnosis (1) Hyperosmolar non-ketotic state in patient with type 2 diabetes mellitus Is this a current diagnosis for this admission?: Yes Plan: IMCU admission, IV fluid challenge, IV insulin reevaluate Accu-Chek q. hour 12 , obtain medication reconciliation for long-acting insulin. (2) Encephalopathy acute Is this a current diagnosis for this admission?: Yes Plan: Secondary to #1, anticipate improvement with resolution. (3) Hyperkalemia Is this a current diagnosis for this admission?: Yes Plan: Secondary to profound hyperglycemia and acute on chronic renal failure, serial chemistry IV insulin, IV fluid, Kayexalate as needed and reevaluate. (4) Acute on chronic renal failure Plan: Likely secondary to profound dehydration, IV fluid challenge, avoid nephrotoxic meds and doses reevaluate chemistry. (5) Hypotension Is this a current diagnosis for this admission?: Yes Plan: Secondary to dehydration, she is received 5 L of normal saline continuing at 250 mL 2 L. Reevaluate blood pressure every 2 hours. - Time Time Spent: 50 to 70 Minutes - Inpatient Certification Medical Necessity: Need Close Monitoring Due to Risk of Patient Decompensation
[2017-04-21] MEDS ORDERED: ATORVASTATIN CALCIUM 80 MG TABLET PO ONE (05:52)
[2017-04-21] MEDS ORDERED: ASPIRIN 325 MG TABLET PO ONE (06:15)
[2017-04-21] MEDS: IPRATROPIUM/ALBUTEROL 0.5-2.5 MG/3 ML AMPUL NEB SCH ×2 (07:45→20:14)
[2017-04-21] MEDS ORDERED: INFLUENZA ADLT QUAD (36MOS+) 2017-18 VAC 0.5 ML SYR IM PRN (07:56)
[2017-04-21] MEDS ORDERED: (PENDING PHARMACY ID) (Levothyroxine Sodium [Levothyroxine Sodium] 125 MCG) PO SCH (08:00)
--- NOTE | 2017-04-21 08:34 | EKG REPORT ---
SEVERITY:- ABNORMAL ECG - VENTRICULAR-PACED RHYTHM : Confirmed by: Presley Wray MD 21-Apr-2017 08:33:54
[2017-04-21] MEDS ORDERED: ASPIRIN 81 MG TABLET, ENT COATED PO SCH (10:00)
[2017-04-21] MEDS: DOCUSATE SODIUM 100 MG CAPSULE PO SCH ×2 (10:50→17:14)
[2017-04-21] MEDS: APIXABAN 5 MG TABLET PO SCH ×2 (10:50→21:25)
[2017-04-21] MEDS: METOPROLOL SUCCINATE 25 MG TAB.SR.24H PO SCH (10:50)
[2017-04-21] MEDS: LEVOTHYROXINE SODIUM 0.1 MG TABLET PO SCH (10:50)
[2017-04-21] MEDS: LEVOTHYROXINE SODIUM 0.025 MG TABLET PO SCH (10:50)
[2017-04-21 11:13] LABS: ABSOLUTE LYMPHOCYTES (AUTO) 1.1 10^3/uL (0.5-4.7); ABSOLUTE MONOCYTES (AUTO) 0.8 10^3/uL (0.1-1.4); ABSOLUTE NEUT (AUTO) 14.7 10^3/uL (1.7-8.2); BASOPHILS % (AUTO) 0.1 % (0-2); EOSINOPHILS % (AUTO) 0.1 % (0-6); HEMATOCRIT 41.7 % (36.0-47.0); HEMOGLOBIN 13.6 g/dL (12.0-15.5); LYMPHOCYTES % (AUTO) 6.7 % (13-45); MEAN CORPUSCULAR HEMOGLOBIN 28.4 pg (27.0-33.4); MEAN CORPUSCULAR HGB CONC 32.5 g/dL (32.0-36.0); MEAN CORPUSCULAR VOLUME 87 fl (80-97); MONOCYTES % (AUTO) 4.7 % (3-13); PLATELET COUNT 147 10^3/uL (150-450); RED BLOOD COUNT 4.78 10^6/uL (3.72-5.28); RED CELL DISTRIBUTION WIDTH 15.6 % (11.5-14.0); SEGMENTED NEUTROPHILS % (AUTO) 88.4 % (42-78); TOTAL CELLS COUNTED % (AUTO) 100 %; WHITE BLOOD COUNT 16.7 10^3/uL (4.0-10.5)
[2017-04-21 11:28] LABS: ANION GAP 8 (5-19); BLOOD UREA NITROGEN 69 mg/dL (7-20); CALCIUM 8.5 mg/dL (8.4-10.2); CARBON DIOXIDE 20 mmol/L (22-30); CHLORIDE 113 mmol/L (98-107); GLUCOSE 281 mg/dL (75-110); POTASSIUM 5.3 mmol/L (3.6-5.0); SODIUM 141.1 mmol/L (137-145)
[2017-04-21 11:38] LABS: CREATINE KINASE MB 4.01 ng/mL (<4.55)
[2017-04-21 11:46] LABS: TROPONIN I 0.196 ng/mL
[2017-04-21] MEDS: INSULIN LISPRO 100 UNIT/ML 3 ML VIAL SUBCUT PRN ×3 (13:17→23:21)
[2017-04-21 15:50] LABS: BLOOD UREA NITROGEN 66 mg/dL (7-20); CALCIUM 8.4 mg/dL (8.4-10.2); GLUCOSE 306 mg/dL (75-110)
[2017-04-21 15:51] LABS: ANION GAP 6 (5-19); CARBON DIOXIDE 18 mmol/L (22-30); CHLORIDE 112 mmol/L (98-107); POTASSIUM 5.4 mmol/L (3.6-5.0); SODIUM 136.4 mmol/L (137-145)
[2017-04-21 19:48] LABS: ANION GAP 5 (5-19); BLOOD UREA NITROGEN 57 mg/dL (7-20); CARBON DIOXIDE 19 mmol/L (22-30); CHLORIDE 113 mmol/L (98-107); CREATINE KINASE 34 U/L (30-135); GLUCOSE 221 mg/dL (75-110); POTASSIUM 4.9 mmol/L (3.6-5.0); SODIUM 137.4 mmol/L (137-145)
[2017-04-21 20:00] LABS: CREATINE KINASE MB 3.19 ng/mL (<4.55)
[2017-04-21 20:07] LABS: TROPONIN I 0.184 ng/mL
[2017-04-21] MEDS ORDERED: ATORVASTATIN CALCIUM 20 MG TABLET PO SCH (22:00)
[2017-04-22 04:10] LABS: CREATINE KINASE MB 2.94 ng/mL (<4.55)
[2017-04-22 04:38] LABS: BLOOD UREA NITROGEN 53 mg/dL (7-20); CALCIUM 8.4 mg/dL (8.4-10.2); CARBON DIOXIDE 20 mmol/L (22-30); CHLORIDE 113 mmol/L (98-107); CREATINE KINASE 30 U/L (30-135); GLUCOSE 231 mg/dL (75-110); POTASSIUM 5.2 mmol/L (3.6-5.0); SODIUM 136.1 mmol/L (137-145)
[2017-04-22 04:41] LABS: ANION GAP 3 (5-19)
[2017-04-22 04:46] LABS: TROPONIN I 0.165 ng/mL
[2017-04-22] MEDS: GABAPENTIN 300 MG CAPSULE PO SCH ×2 (05:10→13:33)
[2017-04-22 06:59] LABS: ABSOLUTE BASOPHILS # (AUTO) 0.1 10^3/uL (0.0-0.2); ABSOLUTE LYMPHOCYTES (AUTO) 1.3 10^3/uL (0.5-4.7); ABSOLUTE MONOCYTES (AUTO) 0.6 10^3/uL (0.1-1.4); ABSOLUTE NEUT (AUTO) 12.1 10^3/uL (1.7-8.2); BASOPHILS % (AUTO) 0.7 % (0-2); EOSINOPHILS % (AUTO) 0.3 % (0-6); HEMATOCRIT 42.3 % (36.0-47.0); HEMOGLOBIN 13.8 g/dL (12.0-15.5); MEAN CORPUSCULAR HEMOGLOBIN 28.5 pg (27.0-33.4); MEAN CORPUSCULAR HGB CONC 32.6 g/dL (32.0-36.0); MEAN CORPUSCULAR VOLUME 87 fl (80-97); MONOCYTES % (AUTO) 4.4 % (3-13); PLATELET COUNT 146 10^3/uL (150-450); RED BLOOD COUNT 4.85 10^6/uL (3.72-5.28); RED CELL DISTRIBUTION WIDTH 15.7 % (11.5-14.0); SEGMENTED NEUTROPHILS % (AUTO) 85.6 % (42-78); TOTAL CELLS COUNTED % (AUTO) 100 %; WHITE BLOOD COUNT 14.2 10^3/uL (4.0-10.5)
[2017-04-22 07:21] LABS: ANION GAP 6 (5-19); BLOOD UREA NITROGEN 50 mg/dL (7-20); CALCIUM 8.7 mg/dL (8.4-10.2); CARBON DIOXIDE 17 mmol/L (22-30); CHLORIDE 114 mmol/L (98-107); GLUCOSE 227 mg/dL (75-110); POTASSIUM 5.5 mmol/L (3.6-5.0); SODIUM 136.7 mmol/L (137-145)
[2017-04-22] MEDS: IPRATROPIUM/ALBUTEROL 0.5-2.5 MG/3 ML AMPUL NEB SCH ×2 (07:45→19:31)
[2017-04-22] MEDS: LEVOTHYROXINE SODIUM 0.1 MG TABLET PO SCH (07:51)
[2017-04-22] MEDS: INSULIN LISPRO 100 UNIT/ML 3 ML VIAL SUBCUT PRN ×4 (07:51→22:31)
[2017-04-22] MEDS: LEVOTHYROXINE SODIUM 0.025 MG TABLET PO SCH (07:51)
[2017-04-22] MEDS: METOPROLOL SUCCINATE 25 MG TAB.SR.24H PO SCH (11:21)
[2017-04-22] MEDS: DOCUSATE SODIUM 100 MG CAPSULE PO SCH ×2 (11:21→16:53)
[2017-04-22] MEDS: ASPIRIN 325 MG TABLET PO SCH (11:21)
[2017-04-22] MEDS: APIXABAN 5 MG TABLET PO SCH ×2 (11:21→22:25)
[2017-04-22 12:16] LABS: ANION GAP 8 (5-19); BLOOD UREA NITROGEN 47 mg/dL (7-20); CALCIUM 8.7 mg/dL (8.4-10.2); CARBON DIOXIDE 16 mmol/L (22-30); CHLORIDE 109 mmol/L (98-107); GLUCOSE 325 mg/dL (75-110); SODIUM 132.7 mmol/L (137-145)
[2017-04-22 14:08] LABS: APPEARANCE,URINE CLEAR; BILIRUBIN,URINE NEGATIVE (NEGATIVE); COLOR,URINE YELLOW; GLUCOSE, URINE >=500 mg/dL (NEGATIVE); KETONES,URINE NEGATIVE (NEGATIVE); LEUKOCYTE ESTERASE,URINE NEGATIVE (NEGATIVE); NITRITE,URINE NEGATIVE (NEGATIVE); PROTEIN,URINE NEGATIVE (NEGATIVE); URINE SPECIFIC GRAVITY 1.023; UROBILINOGEN,URINE NEGATIVE mg/dL (<2.0)
[2017-04-22 16:07] LABS: ANION GAP 7 (5-19); BLOOD UREA NITROGEN 46 mg/dL (7-20); CALCIUM 8.7 mg/dL (8.4-10.2); CARBON DIOXIDE 18 mmol/L (22-30); CHLORIDE 108 mmol/L (98-107); GLUCOSE 311 mg/dL (75-110); POTASSIUM 4.9 mmol/L (3.6-5.0); SODIUM 133.2 mmol/L (137-145)
[2017-04-22] MEDS ORDERED: DEXTROSE 40% GEL 15 GM TUBE PO PRN ×2 (16:55)
[2017-04-22] MEDS ORDERED: DEXTROSE 50%-WATER 25 GM/50 ML DISP.SYRIN IV PRN ×2 (16:55)
[2017-04-22] MEDS ORDERED: GLUCAGON,HUMAN RECOMB 1 MG INJ IM PRN (16:55)
--- NOTE | 2017-04-22 17:08 | PDOC PROGRESS REPORT ---
Subjective Progress Note for:: 04/22/17 Subjective:: No overnight events. This AM sitting in bedside chair. Daughter and in room. Answering some questions appropriately but could not remember daughter's name. Denies CP, SOB, abdominal pain, NV. Appetite has been better. Denies dysuria or increased frequency. Reason For Visit: HYPERKALEMIAHONK, ARF AMS Physical Exam Vital Signs: Temp Pulse Resp BP Pulse Ox 97.5 F 83 16 102/51 L 100 04/22/17 15:25 04/22/17 15:25 04/22/17 15:25 04/22/17 15:25 04/22/17 15:25 Intake & Output 04/21/17 04/22/17 04/23/17 06:59 06:59 06:59 Intake Total 1400 4343 591 Output Total 1450 1925 500 Balance -50 2418 91 Weight 77.5 kg 83 kg General appearance: PRESENT: no acute distress, other - Sitting in bedside chair Head exam: PRESENT: atraumatic, normocephalic Mouth exam: PRESENT: moist Respiratory exam: PRESENT: unlabored Cardiovascular exam: PRESENT: RRR GI/Abdominal exam: PRESENT: soft. ABSENT: tenderness Extremities exam: PRESENT: +1 edema Neurological exam: PRESENT: alert, oriented to person. ABSENT: oriented to place, oriented to time Psychiatric exam: ABSENT: anxious Results Laboratory Results: 04/22/17 06:35 04/22/17 15:30 04/21/17 04/22/17 04/22/17 19:24 03:10 04:15 WBC RBC Hgb Hct MCV MCH MCHC RDW Plt Count Seg Neutrophils % Lymphocytes % Monocytes % Eosinophils % Basophils % Absolute Neutrophils Absolute Lymphocytes Absolute Monocytes Absolute Eosinophils Absolute Basophils Sodium 137.4 Cancelled 136.1 L Potassium 4.9 Cancelled 5.2 H Chloride 113 H Cancelled 113 H Carbon Dioxide 19 L Cancelled 20 L Anion Gap 5 Cancelled 3 L BUN 57 H Cancelled 53 H Creatinine 1.32 H Cancelled 1.31 H Est GFR ( Amer) 47 L Cancelled 47 L Est GFR (Non-Af Amer) 39 L Cancelled 39 L Glucose 221 H Cancelled 231 H Calcium 8.0 L Cancelled 8.4 Urine Color Urine Appearance Urine pH Ur Specific [place] Urine Protein Urine Glucose (UA) Urine Ketones Urine Blood Urine Nitrite Ur Leukocyte Esterase Urine WBC (Auto) Urine RBC (Auto) 04/22/17 04/22/17 04/22/17 06:35 06:35 11:33 WBC 14.2 H RBC 4.85 Hgb 13.8 Hct 42.3 MCV 87 MCH 28.5 MCHC 32.6 RDW 15.7 H Plt Count 146 L Seg Neutrophils % 85.6 H Lymphocytes % 9.0 L Monocytes % 4.4 Eosinophils % 0.3 Basophils % 0.7 Absolute Neutrophils 12.1 H Absolute Lymphocytes 1.3 Absolute Monocytes 0.6 Absolute Eosinophils 0.0 Absolute Basophils 0.1 Sodium 136.7 L 132.7 L Potassium 5.5 H 5.0 Chloride 114 H 109 H Carbon Dioxide 17 L 16 L Anion Gap 6 8 BUN 50 H 47 H Creatinine 1.24 1.11 Est GFR ( Amer) 50 L 57 L Est GFR (Non-Af Amer) 42 L 47 L Glucose 227 H 325 H Calcium 8.7 8.7 Urine Color Urine Appearance Urine pH Ur Specific [place] Urine Protein Urine Glucose (UA) Urine Ketones Urine Blood Urine Nitrite Ur Leukocyte Esterase Urine WBC (Auto) Urine RBC (Auto) 04/22/17 04/22/17 13:40 15:30 WBC RBC Hgb Hct MCV MCH MCHC RDW Plt Count Seg Neutrophils % Lymphocytes % Monocytes % Eosinophils % Basophils % Absolute Neutrophils Absolute Lymphocytes Absolute Monocytes Absolute Eosinophils Absolute Basophils Sodium 133.2 L Potassium 4.9 Chloride 108 H Carbon Dioxide 18 L Anion Gap 7 BUN 46 H Creatinine 1.05 Est GFR ( Amer) > 60 Est GFR (Non-Af Amer) 50 L Glucose 311 H Calcium 8.7 Urine Color YELLOW Urine Appearance CLEAR Urine pH 5.0 Ur Specific [place] 1.023 Urine Protein NEGATIVE Urine Glucose (UA) >=500 H Urine Ketones NEGATIVE Urine Blood MODERATE H Urine Nitrite NEGATIVE Ur Leukocyte Esterase NEGATIVE Urine WBC (Auto) 1 Urine RBC (Auto) 4 04/21/17 04/21/17 04/21/17 10:51 10:51 19:24 Creatine Kinase 42 34 CK-MB (CK-2) 4.01 Troponin I 0.196 04/21/17 04/22/17 04/22/17 19:24 03:10 03:10 Creatine Kinase Cancelled CK-MB (CK-2) 3.19 2.94 Troponin I 0.184 0.165 04/22/17 04/22/17 04:15 06:35 Creatine Kinase 30 CK-MB (CK-2) Troponin I 0.163 Impressions: Chest X-Ray 04/20/17 20:26 IMPRESSION: NO ACUTE RADIOGRAPHIC FINDING IN THE CHEST. NO SIGNIFICANT CHANGE FROM PRIOR STUDY. Assessment & Plan - Diagnosis (1) Altered mental status Qualifiers: Altered mental status type: delirium Qualified Code(s): R41.0 - Disorientation, unspecified Is this a current diagnosis for this admission?: Yes Plan: Unclear etiology. Could be metabolic component however BS are improved since admission. Infectious also considered. Initial Urine CX positive for GPC however only 10-20,000. Repeat UA toady without evidence of UTI. No evidence to treat with antibiotics. Per discussion with family, patient has had progressive decline since admission 3 weeks ago for CHF. CTH reviewed and there is evidence of small white matter changes. Patient dose not have new focal deficits, on my exam or per family. - Given uncertainty of etiology, would consider CT head on 04/23 if MS not improved - Continue control of blood sugars - Avoid sedating medications, will hold gabapentin for now to see if this may be contributing.. (2) Elevated troponin Is this a current diagnosis for this admission?: Yes Plan: Elevated at admission, peaked at 0.18 however subsequent checks trending down - Likely demand ischemia - Will NOT continue to check troponins as patient is asymptomatic (3) Hyperosmolar non-ketotic state in patient with type 2 diabetes mellitus Is this a current diagnosis for this admission?: Yes Plan: Blood sugar was 800 at admission, better control however still elevated - Continue current regimen, added Lantus 10U on 04/22 - Time Time Spent with patient: 15-24 minutes Anticipated discharge: Home with Homehealth, SNF Within: within 48 hours
[2017-04-22 20:12] LABS: ANION GAP 6 (5-19); BLOOD UREA NITROGEN 45 mg/dL (7-20); CALCIUM 8.7 mg/dL (8.4-10.2); CARBON DIOXIDE 18 mmol/L (22-30); CHLORIDE 110 mmol/L (98-107); GLUCOSE 291 mg/dL (75-110); SODIUM 134.3 mmol/L (137-145)
[2017-04-22] MEDS ORDERED: INSULIN GLARGINE,HUM.REC.ANLOG 300 UNIT/3 ML INSULN.PEN SUBCUT SCH (22:00)
[2017-04-22] MEDS ORDERED: INSULIN GLARGINE,HUM.REC.ANLOG 300 UNIT/3 ML INSULN.PEN SUBCUT ONE (22:31)
[2017-04-22 23:46] LABS: ANION GAP 8 (5-19); BLOOD UREA NITROGEN 46 mg/dL (7-20); CALCIUM 8.6 mg/dL (8.4-10.2); CARBON DIOXIDE 18 mmol/L (22-30); CHLORIDE 108 mmol/L (98-107); POTASSIUM 5.1 mmol/L (3.6-5.0)
[2017-04-22 23:52] LABS: GLUCOSE 389 mg/dL (75-110)
[2017-04-23 03:36] LABS: ABSOLUTE BASOPHILS # (AUTO) 0.1 10^3/uL (0.0-0.2); ABSOLUTE EOSINOPHILS # (AUTO) 0.1 10^3/uL (0.0-0.6); ABSOLUTE LYMPHOCYTES (AUTO) 0.9 10^3/uL (0.5-4.7); ABSOLUTE MONOCYTES (AUTO) 0.6 10^3/uL (0.1-1.4); ABSOLUTE NEUT (AUTO) 9.9 10^3/uL (1.7-8.2); BASOPHILS % (AUTO) 0.5 % (0-2); EOSINOPHILS % (AUTO) 0.6 % (0-6); HEMATOCRIT 37.3 % (36.0-47.0); HEMOGLOBIN 12.3 g/dL (12.0-15.5); LYMPHOCYTES % (AUTO) 7.5 % (13-45); MEAN CORPUSCULAR HEMOGLOBIN 28.6 pg (27.0-33.4); MEAN CORPUSCULAR HGB CONC 32.9 g/dL (32.0-36.0); MEAN CORPUSCULAR VOLUME 87 fl (80-97); MONOCYTES % (AUTO) 5.3 % (3-13); PLATELET COUNT 121 10^3/uL (150-450); RED BLOOD COUNT 4.29 10^6/uL (3.72-5.28); RED CELL DISTRIBUTION WIDTH 15.8 % (11.5-14.0); SEGMENTED NEUTROPHILS % (AUTO) 86.1 % (42-78); TOTAL CELLS COUNTED % (AUTO) 100 %; WHITE BLOOD COUNT 11.5 10^3/uL (4.0-10.5)
[2017-04-23 03:48] LABS: ANION GAP 6 (5-19); BLOOD UREA NITROGEN 44 mg/dL (7-20); CALCIUM 9.2 mg/dL (8.4-10.2); CARBON DIOXIDE 19 mmol/L (22-30); CHLORIDE 109 mmol/L (98-107); GLUCOSE 311 mg/dL (75-110); POTASSIUM 4.7 mmol/L (3.6-5.0); SODIUM 134.2 mmol/L (137-145)
[2017-04-23] MEDS: IPRATROPIUM/ALBUTEROL 0.5-2.5 MG/3 ML AMPUL NEB SCH ×2 (07:49→19:57)
[2017-04-23] MEDS ORDERED: ONDANSETRON HCL INJ/PF 4 MG/2 ML SDV IV PRN (08:00)
[2017-04-23] MEDS ORDERED: MAG HYDROX/AL HYDROX/SIMETH SUSP 30 ML UDCUP PO PRN (08:00)
[2017-04-23] MEDS ORDERED: ACETAMINOPHEN 325 MG TABLET PO PRN (08:00)
[2017-04-23 08:11] LABS: ANION GAP 5 (5-19); BLOOD UREA NITROGEN 46 mg/dL (7-20); CALCIUM 9.2 mg/dL (8.4-10.2); CARBON DIOXIDE 20 mmol/L (22-30); CHLORIDE 109 mmol/L (98-107); GLUCOSE 252 mg/dL (75-110); SODIUM 134.1 mmol/L (137-145)
[2017-04-23] MEDS: LEVOTHYROXINE SODIUM 0.025 MG TABLET PO SCH (08:48)
[2017-04-23] MEDS: LEVOTHYROXINE SODIUM 0.1 MG TABLET PO SCH (08:48)
[2017-04-23] MEDS: INSULIN LISPRO 100 UNIT/ML 3 ML VIAL SUBCUT PRN ×4 (08:49→22:24)
[2017-04-23] MEDS: DOCUSATE SODIUM 100 MG CAPSULE PO SCH ×2 (10:46→17:27)
[2017-04-23] MEDS: APIXABAN 2.5 MG TABLET PO SCH ×2 (10:46→21:36)
[2017-04-23] MEDS: METOPROLOL SUCCINATE 25 MG TAB.SR.24H PO SCH (10:46)
[2017-04-23] MEDS: ASPIRIN 325 MG TABLET PO SCH (10:46)
[2017-04-23 12:12] LABS: ANION GAP 8 (5-19); BLOOD UREA NITROGEN 44 mg/dL (7-20); CALCIUM 9.3 mg/dL (8.4-10.2); CARBON DIOXIDE 19 mmol/L (22-30); CHLORIDE 106 mmol/L (98-107); GLUCOSE 298 mg/dL (75-110); POTASSIUM 4.7 mmol/L (3.6-5.0); SODIUM 133.1 mmol/L (137-145)
[2017-04-23] MEDS ORDERED: INSULIN GLARGINE,HUM.REC.ANLOG 300 UNIT/3 ML INSULN.PEN SUBCUT SCH (13:52)
[2017-04-23] MEDS ORDERED: AMPICILLIN SOD/SULBACTAM 1.5 GM VIAL IV SCH (14:00)
--- NOTE | 2017-04-23 14:08 | PDOC PROGRESS REPORT ---
Subjective Progress Note for:: 04/23/17 Subjective:: No complaints. is to bedside and admits that patient is not back to usual self. Review of systems All organ systems evaluated and negative except as in subjective All laboratories and significant diagnostics were reviewed. Reason For Visit: HYPERKALEMIAHONK, ARF AMS Physical Exam Vital Signs: Temp Pulse Resp BP Pulse Ox 98.6 F 79 16 118/63 100 04/23/17 03:34 04/23/17 03:34 04/23/17 03:34 04/23/17 03:34 04/23/17 03:34 Intake & Output 04/22/17 04/23/17 04/24/17 06:59 06:59 06:59 Intake Total 4343 1203 Output Total 1925 1575 Balance 2418 -372 Weight 83 kg 83.4 kg General appearance: PRESENT: no acute distress, cooperative, obese Head exam: PRESENT: atraumatic, normocephalic Eye exam: PRESENT: EOMI, PERRLA Ear exam: PRESENT: normal external ear exam Mouth exam: PRESENT: moist Neck exam: PRESENT: full ROM. ABSENT: JVD, lymphadenopathy, tenderness Respiratory exam: PRESENT: clear to auscultation leandra Cardiovascular exam: PRESENT: RRR. ABSENT: gallop, systolic murmur Vascular exam: PRESENT: normal capillary refill GI/Abdominal exam: PRESENT: normal bowel sounds. ABSENT: soft, tenderness Extremities exam: PRESENT: full ROM. ABSENT: joint swelling, pedal edema Musculoskeletal exam: PRESENT: ambulatory Neurological exam: PRESENT: alert, awake, oriented to person, oriented to place , CN II-XII grossly intact Psychiatric exam: PRESENT: depressed Skin exam: PRESENT: intact, normal color Results Laboratory Results: 04/23/17 03:27 04/23/17 03:27 04/22/17 04/22/17 04/22/17 11:33 13:40 15:30 WBC RBC Hgb Hct MCV MCH MCHC RDW Plt Count Seg Neutrophils % Lymphocytes % Monocytes % Eosinophils % Basophils % Absolute Neutrophils Absolute Lymphocytes Absolute Monocytes Absolute Eosinophils Absolute Basophils Sodium 132.7 L 133.2 L Potassium 5.0 4.9 Chloride 109 H 108 H Carbon Dioxide 16 L 18 L Anion Gap 8 7 BUN 47 H 46 H Creatinine 1.11 1.05 Est GFR ( Amer) 57 L > 60 Est GFR (Non-Af Amer) 47 L 50 L Glucose 325 H 311 H Calcium 8.7 8.7 Urine Color YELLOW Urine Appearance CLEAR Urine pH 5.0 Ur Specific [place] 1.023 Urine Protein NEGATIVE Urine Glucose (UA) >=500 H Urine Ketones NEGATIVE Urine Blood MODERATE H Urine Nitrite NEGATIVE Ur Leukocyte Esterase NEGATIVE Urine WBC (Auto) 1 Urine RBC (Auto) 4 04/22/17 04/22/17 04/23/17 19:43 23:16 03:27 WBC 11.5 H RBC 4.29 Hgb 12.3 Hct 37.3 MCV 87 MCH 28.6 MCHC 32.9 RDW 15.8 H Plt Count 121 L Seg Neutrophils % 86.1 H Lymphocytes % 7.5 L Monocytes % 5.3 Eosinophils % 0.6 Basophils % 0.5 Absolute Neutrophils 9.9 H Absolute Lymphocytes 0.9 Absolute Monocytes 0.6 Absolute Eosinophils 0.1 Absolute Basophils 0.1 Sodium 134.3 L 134.0 L Potassium 5.0 5.1 H Chloride 110 H 108 H Carbon Dioxide 18 L 18 L Anion Gap 6 8 BUN 45 H 46 H Creatinine 1.05 1.26 H Est GFR ( Amer) > 60 49 L Est GFR (Non-Af Amer) 50 L 41 L Glucose 291 H 389 H Calcium 8.7 8.6 Urine Color Urine Appearance Urine pH Ur Specific [place] Urine Protein Urine Glucose (UA) Urine Ketones Urine Blood Urine Nitrite Ur Leukocyte Esterase Urine WBC (Auto) Urine RBC (Auto) 04/23/17 03:27 WBC RBC Hgb Hct MCV MCH MCHC RDW Plt Count Seg Neutrophils % Lymphocytes % Monocytes % Eosinophils % Basophils % Absolute Neutrophils Absolute Lymphocytes Absolute Monocytes Absolute Eosinophils Absolute Basophils Sodium 134.2 L Potassium 4.7 Chloride 109 H Carbon Dioxide 19 L Anion Gap 6 BUN 44 H Creatinine 1.24 Est GFR ( Amer) 50 L Est GFR (Non-Af Amer) 42 L Glucose 311 H Calcium 9.2 Urine Color Urine Appearance Urine pH Ur Specific [place] Urine Protein Urine Glucose (UA) Urine Ketones Urine Blood Urine Nitrite Ur Leukocyte Esterase Urine WBC (Auto) Urine RBC (Auto) 04/21/17 04/21/17 04/21/17 10:51 10:51 19:24 Creatine Kinase 42 34 CK-MB (CK-2) 4.01 Troponin I 0.196 02/03/18 02/04/18 02/04/18 19:24 03:10 03:10 Creatine Kinase Cancelled CK-MB (CK-2) 3.19 2.94 Troponin I 0.184 0.165 04/22/17 04/22/17 04:15 06:35 Creatine Kinase 30 CK-MB (CK-2) Troponin I 0.163 Impressions: Chest X-Ray 04/20/17 20:26 IMPRESSION: NO ACUTE RADIOGRAPHIC FINDING IN THE CHEST. NO SIGNIFICANT CHANGE FROM PRIOR STUDY. Assessment & Plan - Diagnosis (1) Dehydration Is this a current diagnosis for this admission?: Yes Plan: Improving (2) Elevated troponin Is this a current diagnosis for this admission?: Yes Plan: Due to myocardial demand ischemia (3) Encephalopathy acute Is this a current diagnosis for this admission?: Yes Plan: May relate to uncontrolled diabetes. To order CT of head (4) Hyperosmolar non-ketotic state in patient with type 2 diabetes mellitus Is this a current diagnosis for this admission?: Yes Plan: To increase lantus, to place Humalog AC and continue Humalog sliding scale (5) Hypotension Qualifiers: Hypotension type: other hypotension type Qualified Code(s): I95.89 - Other hypotension Is this a current diagnosis for this admission?: Yes Plan: Improved (6) UTI (urinary tract infection) due to Enterococcus Is this a current diagnosis for this admission?: Yes Plan: To place on Unasyn - Time Time Spent with patient: 15-24 minutes Medications reviewed and adjusted accordingly: Yes Anticipated discharge: Home with Homehealth Within: within 48 hours - Inpatient Certification Based on my medical assessment, after consideration of the patient's comorbidities, presenting symptoms, or acuity I expect that the services needed warrant INPATIENT care.: Yes I certify that my determination is in accordance with my understanding of Medicare's requirements for reasonable and necessary INPATIENT services [42 CFR 412.3e].: Yes Medical Necessity: Need Close Monitoring Due to Risk of Patient Decompensation
[2017-04-23] MEDS: NORMAL SALINE 1000 ML 1,000 ML IV PRN (15:39)
[2017-04-23] MEDS: AMPICILLIN SODIUM/SULBACTAM NA 1.5 GM in NORMAL SALINE 50 ML IV SCH ×2 (15:40→20:19)
--- NOTE | 2017-04-23 16:19 | RADIOLOGY REPORT (SQ) ---
EXAM DESCRIPTION: CT HEAD WITHOUT COMPLETED DATE/TIME: 04/23/2017 4:10 pm REASON FOR STUDY: mental status changes COMPARISON: 10/31/2016 CT brain TECHNIQUE: Axial images acquired through the brain without intravenous contrast. Images reviewed wi th bone, brain and subdural windows. Images stored on PACS. All CT scanners at this facility use dose modulation, iterative reconstruction, and/or weight based d osing when appropriate to reduce radiation dose to as low as reasonably achievable (ALARA). [facility]: Dose Right [facility]: CareDose [facility]: Dose Right [facility]: Teradose 4D [facility]: [employer] RADIATION DOSE: CT Rad equipment meets quality standard of care and radiation dose reduction techniq ues were employed. CTDIvol: 49.0 mGy. DLP: 783 mGy-cm. mGy. LIMITATIONS: None. FINDINGS: VENTRICLES: Normal size and contour. CEREBRUM: No CT evidence of acute large territory ischemic change, acute intracranial hemorrhage, mas s effect, or midline shift. Moderate bifrontal white matter disease, chronic. 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 CEREBELLUM: No masses. No hemorrhage. No alteration of density. No evidence for acute infarction. EXTRAAXIAL SPACES: No fluid collections. No masses. ORBITS AND GLOBE: No intra- or extraconal masses. Normal contour of globe without masses. CALVARIUM: No fracture. PARANASAL SINUSES: No fluid or mucosal thickening. SOFT TISSUES: No mass or hematoma. OTHER: No other significant finding. IMPRESSION: No acute findings EVIDENCE OF ACUTE STROKE: NO. COMMENT: Quality ID # [id number]: Final reports with documentation of one or more dose reduction techniques (e.g., Automated exposure control, adjustment of the mA and/or kV according to patient size, use of iterative reconstruction technique) TECHNICAL DOCUMENTATION: JOB ID: [id number] [employer]- All Rights Reserved
[2017-04-23 16:35] LABS: ANION GAP 5 (5-19); BLOOD UREA NITROGEN 44 mg/dL (7-20); CALCIUM 9.6 mg/dL (8.4-10.2); CARBON DIOXIDE 21 mmol/L (22-30); CHLORIDE 108 mmol/L (98-107); GLUCOSE 346 mg/dL (75-110); POTASSIUM 4.8 mmol/L (3.6-5.0); SODIUM 134.2 mmol/L (137-145)
[2017-04-23] MEDS: INSULIN LISPRO 100 UNIT/ML 3 ML VIAL SUBCUT SCH (16:46)
[2017-04-23 20:02] LABS: ANION GAP 8 (5-19); BLOOD UREA NITROGEN 43 mg/dL (7-20); CALCIUM 9.3 mg/dL (8.4-10.2); CARBON DIOXIDE 19 mmol/L (22-30); CHLORIDE 107 mmol/L (98-107); GLUCOSE 265 mg/dL (75-110); POTASSIUM 4.7 mmol/L (3.6-5.0); SODIUM 134.3 mmol/L (137-145)
[2017-04-23 23:41] LABS: ANION GAP 8 (5-19); BLOOD UREA NITROGEN 44 mg/dL (7-20); CALCIUM 9.2 mg/dL (8.4-10.2); CARBON DIOXIDE 20 mmol/L (22-30); CHLORIDE 108 mmol/L (98-107); GLUCOSE 335 mg/dL (75-110); SODIUM 135.8 mmol/L (137-145)
[2017-04-24] MEDS: AMPICILLIN SODIUM/SULBACTAM NA 1.5 GM in NORMAL SALINE 50 ML IV SCH ×2 (03:16→11:19)
[2017-04-24] MEDS: NORMAL SALINE 1000 ML 1,000 ML IV PRN (03:17)
[2017-04-24 03:54] LABS: BLOOD UREA NITROGEN 38 mg/dL (7-20); CALCIUM 9.1 mg/dL (8.4-10.2); GLUCOSE 263 mg/dL (75-110)
[2017-04-24 04:18] LABS: ANION GAP 5 (5-19); CARBON DIOXIDE 20 mmol/L (22-30); CHLORIDE 110 mmol/L (98-107); POTASSIUM 4.8 mmol/L (3.6-5.0)
[2017-04-24 04:19] LABS: SODIUM 134.6 mmol/L (137-145)
[2017-04-24 07:21] LABS: ABSOLUTE BASOPHILS # (AUTO) 0.1 10^3/uL (0.0-0.2); ABSOLUTE EOSINOPHILS # (AUTO) 0.2 10^3/uL (0.0-0.6); ABSOLUTE MONOCYTES (AUTO) 0.6 10^3/uL (0.1-1.4); ABSOLUTE NEUT (AUTO) 7.5 10^3/uL (1.7-8.2); BASOPHILS % (AUTO) 0.7 % (0-2); EOSINOPHILS % (AUTO) 2.1 % (0-6); HEMATOCRIT 39.6 % (36.0-47.0); HEMOGLOBIN 13.2 g/dL (12.0-15.5); LYMPHOCYTES % (AUTO) 10.9 % (13-45); MEAN CORPUSCULAR HEMOGLOBIN 28.9 pg (27.0-33.4); MEAN CORPUSCULAR HGB CONC 33.3 g/dL (32.0-36.0); MEAN CORPUSCULAR VOLUME 87 fl (80-97); MONOCYTES % (AUTO) 6.2 % (3-13); PLATELET COUNT 117 10^3/uL (150-450); RED BLOOD COUNT 4.58 10^6/uL (3.72-5.28); RED CELL DISTRIBUTION WIDTH 15.2 % (11.5-14.0); SEGMENTED NEUTROPHILS % (AUTO) 80.1 % (42-78); TOTAL CELLS COUNTED % (AUTO) 100 %; WHITE BLOOD COUNT 9.3 10^3/uL (4.0-10.5)
[2017-04-24 07:37] LABS: ANION GAP 6 (5-19); BLOOD UREA NITROGEN 37 mg/dL (7-20); CALCIUM 9.4 mg/dL (8.4-10.2); CARBON DIOXIDE 20 mmol/L (22-30); CHLORIDE 111 mmol/L (98-107); GLUCOSE 210 mg/dL (75-110); MAGNESIUM 2.1 mg/dL (1.6-2.3); POTASSIUM 4.8 mmol/L (3.6-5.0); SODIUM 136.6 mmol/L (137-145)
[2017-04-24] MEDS: LEVOTHYROXINE SODIUM 0.1 MG TABLET PO SCH (07:43)
[2017-04-24] MEDS: INSULIN LISPRO 100 UNIT/ML 3 ML VIAL SUBCUT PRN (07:43)
[2017-04-24] MEDS: LEVOTHYROXINE SODIUM 0.025 MG TABLET PO SCH (07:43)
[2017-04-24] MEDS: INSULIN LISPRO 100 UNIT/ML 3 ML VIAL SUBCUT SCH (07:43)
[2017-04-24] MEDS: IPRATROPIUM/ALBUTEROL 0.5-2.5 MG/3 ML AMPUL NEB SCH (08:30)
[2017-04-24] MEDS: DOCUSATE SODIUM 100 MG CAPSULE PO SCH (11:17)
[2017-04-24] MEDS: METOPROLOL SUCCINATE 25 MG TAB.SR.24H PO SCH (11:18)
[2017-04-24] MEDS: APIXABAN 2.5 MG TABLET PO SCH (11:18)
[2017-04-24] MEDS: ASPIRIN 325 MG TABLET PO SCH (11:18)
[2017-04-24 12:00] LABS: ANION GAP 7 (5-19); BLOOD UREA NITROGEN 34 mg/dL (7-20); CALCIUM 9.4 mg/dL (8.4-10.2); CARBON DIOXIDE 21 mmol/L (22-30); CHLORIDE 109 mmol/L (98-107); GLUCOSE 226 mg/dL (75-110); POTASSIUM 4.6 mmol/L (3.6-5.0); SODIUM 136.8 mmol/L (137-145)
[2017-04-24] MEDS ORDERED: BISACODYL 10 MG SUPP.RECT PR ONE (12:00)
[2017-04-24 13:30] VITALS: BP 73/48
--- NOTE | 2017-04-24 15:25 | PDOC DISCHARGE SUMMARY ---
General - Admit/Disc Date/PCP Admission Date/Primary Care Provider: 04/21/17 02:28 SRINATH CLIFTON MD Discharge Date: 04/24/17 - Discharge Diagnosis (1) Hyperosmolar non-ketotic state in patient with type 2 diabetes mellitus Is this a current diagnosis for this admission?: Yes (2) Encephalopathy acute Is this a current diagnosis for this admission?: Yes (3) UTI (urinary tract infection) due to Enterococcus Is this a current diagnosis for this admission?: Yes (4) Non-STEMI (non-ST elevated myocardial infarction) Is this a current diagnosis for this admission?: Yes (5) Dehydration Is this a current diagnosis for this admission?: Yes (6) Hypotension Is this a current diagnosis for this admission?: Yes (7) Acute on chronic renal failure Is this a current diagnosis for this admission?: Yes (8) Hyperkalemia Is this a current diagnosis for this admission?: Yes - Additional Information Resuscitation Status: Do Not Resuscitate Discharge Diet: Diabetic Discharge Activity: Activity As Tolerated Prescriptions: Amox Tr/Potassium Clavulanate [Augmentin 875-125 mg Tablet] 1 tab PO BID #20 tablet Insulin Glargine,Hum.rec.anlog [Lantus Insulin 100 Unit/mL] 30 unit SUBCUT QHS 30 Days #1 insuln.pen Insulin Lispro [Humalog Insulin (Lispro) 100 unit/mL] 5 unit SUBCUT AC 30 Days # 1 unit Home Medications: Apixaban [Eliquis 5 mg Tablet] 5 mg PO BID 04/21/17 Aspirin [Aspirin EC] 81 mg PO DAILY 04/21/17 Diclofenac/Lidocaine/Prilocaine 1 gm TOP TID 04/21/17 Furosemide [Lasix 40 mg Tablet] 40 mg PO DAILY 04/21/17 Gabapentin [Neurontin 300 mg Capsule] 300 mg PO Q8 04/21/17 Levothyroxine Sodium [Synthroid] 125 mcg PO Q6AM 04/21/17 Lisinopril [Zestril] 10 mg PO DAILY 04/21/17 Metoprolol Succinate [Toprol Xl 25 mg Tab.sr] 25 mg PO DAILY 04/21/17 Potassium Chloride [Klor-Con M20] 20 mg PO DAILY 04/21/17 Sitagliptin Phosphate [Januvia 50 mg Tablet] 50 mg PO DAILY 04/21/17 Amox Tr/Potassium Clavulanate [Augmentin 875-125 mg Tablet] 1 tab PO BID #20 tablet 04/24/17 Insulin Glargine,Hum.rec.anlog [Lantus Insulin 100 Unit/mL] 30 unit SUBCUT QHS 30 Days #1 insuln.pen 04/24/17 Insulin Lispro [Humalog Insulin (Lispro) 100 unit/mL] 5 unit SUBCUT AC 30 Days # 1 unit 04/24/17 History of Present Illness History of Present Illness: MIKE ARMSTRONG is a 82 year old female with a past medical history of diabetes, atrial fibrillation, status post permanent pacemaker placement, chronic kidney disease stage II and dementia. Patient presents with her who stated that patient had been intolerant of food secondary to nausea. She developed confusion and altered mental status, without focal neurologic deficit over the course of one day. She was brought to the emergency room for evaluation she was found to have profound dehydration and hypotension, a blood sugar greater than 800 without acidosis, hyperkalemia with a potassium of 6.7 without peak T waves, and acute on chronic renal failure. She received 4 L of normal saline, IV insulin and referred to the hospitalist for admission Hospital Course Hospital Course: Patient was admitted under the hospitalist service. Patient responded to hydration and treatment with insulin. Hypotension resolved with fluid resuscitation and antihypertensive regimen was restarted. Urine culture obtained on admission grew higher than 100,000 colonies of Enterococcus faecalis. Patient has been discharged on Augmentin 875 mg 1 p.o. twice daily for 10 days. Recommend primary care provider to follow-up with urine culture once through with therapy. Patient was discharged on Lantus and Humalog. We discontinued glipizide as it appears that may not serve to control patient's blood sugar. Further adjustments of insulin regimen will need to be pursued as outpatient. Troponin level was elevated and it was deemed due to myocardial demand ischemia in the setting of hyperglycemia. Had lengthy conversation with patient's since due to patient's mental status she may need assistance getting all her medications and monitoring of blood sugar levels.We opted to discharge patient with home health. Hopefully will assist in gaining knowledge about management of diabetes. Is my understanding that family wishes to take care of patient at home as much as possible. He requested for patient to be discharged since he felt she had improved enough to go home. Since stable granted 's wishes and discharge patient home with home health Physical Exam Vital Signs: Temp Pulse Resp BP Pulse Ox 97.8 F 78 16 145/73 H 96 04/24/17 04:33 04/24/17 08:30 04/24/17 08:30 04/24/17 08:23 04/24/17 08:30 Intake & Output 04/23/17 04/24/17 04/25/17 06:59 06:59 06:59 Intake Total 1703 4250 Output Total 2475 3275 Balance -772 975 Weight 83.4 kg 81.8 kg General appearance: PRESENT: no acute distress, cooperative, obese Head exam: PRESENT: atraumatic, normocephalic Eye exam: PRESENT: conjunctiva pink, EOMI, PERRLA Ear exam: PRESENT: normal external ear exam Mouth exam: PRESENT: moist, neck supple Neck exam: PRESENT: full ROM. ABSENT: JVD, lymphadenopathy, tenderness Respiratory exam: PRESENT: clear to auscultation leandra Cardiovascular exam: PRESENT: irregular rhythm. ABSENT: diastolic murmur, systolic murmur Vascular exam: PRESENT: normal capillary refill GI/Abdominal exam: PRESENT: normal bowel sounds, soft. ABSENT: tenderness Extremities exam: PRESENT: full ROM. ABSENT: joint swelling, pedal edema Musculoskeletal exam: PRESENT: ambulatory Neurological exam: PRESENT: alert, oriented to person, oriented to place, oriented to time, oriented to situation, CN II-XII grossly intact Psychiatric exam: PRESENT: appropriate affect, normal mood Skin exam: PRESENT: intact, normal color Results Laboratory Results: 04/24/17 07:10 04/24/17 07:10 04/23/17 04/23/17 04/23/17 11:34 15:25 19:19 WBC RBC Hgb Hct MCV MCH MCHC RDW Plt Count Seg Neutrophils % Lymphocytes % Monocytes % Eosinophils % Basophils % Absolute Neutrophils Absolute Lymphocytes Absolute Monocytes Absolute Eosinophils Absolute Basophils Sodium 133.1 L 134.2 L 134.3 L Potassium 4.7 4.8 4.7 Chloride 106 108 H 107 Carbon Dioxide 19 L 21 L 19 L Anion Gap 8 5 8 BUN 44 H 44 H 43 H Creatinine 1.04 1.12 1.01 Est GFR ( Amer) > 60 57 L > 60 Est GFR (Non-Af Amer) 51 L 47 L 53 L Glucose 298 H 346 H 265 H Calcium 9.3 9.6 9.3 Magnesium 04/23/17 04/24/17 04/24/17 23:16 03:18 07:10 WBC 9.3 RBC 4.58 Hgb 13.2 Hct 39.6 MCV 87 MCH 28.9 MCHC 33.3 RDW 15.2 H Plt Count 117 L Seg Neutrophils % 80.1 H Lymphocytes % 10.9 L Monocytes % 6.2 Eosinophils % 2.1 Basophils % 0.7 Absolute Neutrophils 7.5 Absolute Lymphocytes 1.0 Absolute Monocytes 0.6 Absolute Eosinophils 0.2 Absolute Basophils 0.1 Sodium 135.8 L 134.6 L Potassium 5.0 4.8 Chloride 108 H 110 H Carbon Dioxide 20 L 20 L Anion Gap 8 5 BUN 44 H 38 H Creatinine 1.02 0.96 Est GFR ( Amer) > 60 > 60 Est GFR (Non-Af Amer) 52 L 56 L Glucose 335 H 263 H Calcium 9.2 9.1 Magnesium 04/24/17 07:10 WBC RBC Hgb Hct MCV MCH MCHC RDW Plt Count Seg Neutrophils % Lymphocytes % Monocytes % Eosinophils % Basophils % Absolute Neutrophils Absolute Lymphocytes Absolute Monocytes Absolute Eosinophils Absolute Basophils Sodium 136.6 L Potassium 4.8 Chloride 111 H Carbon Dioxide 20 L Anion Gap 6 BUN 37 H Creatinine 0.98 Est GFR ( Amer) > 60 Est GFR (Non-Af Amer) 55 L Glucose 210 H Calcium 9.4 Magnesium 2.1 04/21/17 04/21/17 04/21/17 10:51 10:51 19:24 Creatine Kinase 42 34 CK-MB (CK-2) 4.01 Troponin I 0.196 04/21/17 04/22/17 04/22/17 19:24 03:10 03:10 Creatine Kinase Cancelled CK-MB (CK-2) 3.19 2.94 Troponin I 0.184 0.165 04/22/17 04/22/17 04:15 06:35 Creatine Kinase 30 CK-MB (CK-2) Troponin I 0.163 Impressions: Chest X-Ray 04/20/17 20:26 IMPRESSION: NO ACUTE RADIOGRAPHIC FINDING IN THE CHEST. NO SIGNIFICANT CHANGE FROM PRIOR STUDY. Head CT 04/23/17 00:00 IMPRESSION: No acute findings EVIDENCE OF ACUTE STROKE: NO. Plan Discharge Plan: Home with home health Time Spent: Less than 30 Minutes
== END 2017-04-24 13:44 | disposition home health service (06) | DRG 637 ==
LOC: ER 20:06 → EH 04-21 02:28 → 3N 04-21 04:16
PROVIDERS: ADMIT Internal Medicine; ATTEND Internal Medicine
DX: E11.00 Type 2 diabetes mellitus with hyperosmolarity without nonketotic hyperglycemic-hyperosmolar coma (NKHHC) (principal); R57.1 Hypovolemic shock; G93.40 Encephalopathy, unspecified; I21.A1 Myocardial infarction type 2; N17.9 Acute kidney failure, unspecified; N39.0 Urinary tract infection, site not specified; Z66 Do not resuscitate; R41.82 Altered mental status, unspecified; I48.91 Unspecified atrial fibrillation; I95.9 Hypotension, unspecified; E87.5 Hyperkalemia; E86.0 Dehydration; E11.22 Type 2 diabetes mellitus with diabetic chronic kidney disease; I12.9 Hypertensive chronic kidney disease with stage 1 through stage 4 chronic kidney disease, or unspecified chronic kidney disease; N18.2 Chronic kidney disease, stage 2 (mild); E78.00 Pure hypercholesterolemia, unspecified; J44.9 Chronic obstructive pulmonary disease, unspecified; E03.9 Hypothyroidism, unspecified; K21.9 Gastro-esophageal reflux disease without esophagitis; B95.2 Enterococcus as the cause of diseases classified elsewhere; Z95.0 Presence of cardiac pacemaker; Z86.73 Personal history of transient ischemic attack (TIA), and cerebral infarction without residual deficits; Z79.82 Long term (current) use of aspirin; Z79.84 Long term (current) use of oral hypoglycemic drugs; Z79.4 Long term (current) use of insulin; Z79.51 Long term (current) use of inhaled steroids; Z79.899 Other long term (current) drug therapy
CPT/HCPCS: 36415; 70450; 71045; 80048; 80053; 81001; 82550; 82553; 82803; 82962; 83605; 83735; 83880; 84439; 84443; 84481; 84484; 85025; 87040; 87086; 87088; 87186; 93005; 93010; 96361; 96365; 96375; 99291; G8978-GP; G8979-GP; J0295; J0610; J0692; J1815; J3490; J7030; J7120; J7620

== ENCOUNTER → 2017-08-21 | Outpatient (CLI) | payer MEDICARE ==
--- NOTE | 2017-08-21 15:48 | WOMENS IMAGING REPORT ---
EXAM DESCRIPTION: 3D SCREENING MAMMO BILAT COMPLETED DATE/TIME: 08/21/2017 1:53 pm REASON FOR STUDY: SCREENING MAMMO Z12.31 ENCNTR SCREEN MAMMOGRAM FOR MALIGNANT NEOPLASM OF ALEXA COMPARISON: None. TECHNIQUE: Standard craniocaudal and mediolateral oblique views of each breast recorded using digita l acquisition and breast tomosynthesis. LIMITATIONS: None. FINDINGS: Findings present which are benign by mammographic criteria. No suspicious masses, calcifi cations or architectural distortion. Pertinent benign findings: Benign calcifications. Read with the assistance of CAD. .[facility] - R2 Cenova Version 1.3 .[facility] - R2 Cenova Version 1.3 .[facility] - R2 Cenova Version 2.4 .[facility] [place] - R2 Cenova Version 2.4 .[facility] - R2 [employer] Version 9.2 Benign mammographic findings may include one or more of the following: Smooth masses, popcorn/rim/co arse calcifications, asymmetries, post-procedure changes, and lesions with long-standing stability. IMPRESSION: BENIGN MAMMOGRAPHIC FINDINGS. BIRADS 2 BREAST DENSITY: b. There are scattered areas of fibroglandular density. BIRAD: 2 BENIGN FINDING(S) RECOMMENDATION: RECOMMENDATION: ROUTINE SCREENING COMMENT: The patient has been notified of the results by letter per SA requirements. Additional no tification policies are in place for contacting patient with suspicious or incomplete findings. Quality ID #225: The [employer] recommends an annual screening mammogram for women aged 40 years or over. This facility utilizes a reminder system to ensure that all patients receive reminder letters, and/or direct phone calls for appointments. This includes reminders for routine scr eening mammograms, diagnostic mammograms, or other Breast Imaging Interventions when appropriate. Th is patient will be placed in the appropriate reminder system. The [employer] (ACR) has developed recommendations for screening MRI of the breast s in certain patient populations, to be used in conjunction with mammography. Breast MRI surveillanc e may be appropriate for women with more than 20% lifetime risk of developing breast cancer as deter mined by genetic testing, significant family history of the disease, or history of mantle radiation f or Hodgkins Disease. ACR Practice Guidelines 2008. DBT Technology DBT is a type of tomographic mammography. With conventional mammography, overlapping breast tissue ma y make lesions difficult to detect, even with good compression. DBT uses an x-ray tube that rotates a round the breast, taking images at different angles. These images are then combined to create thin sl ices of the breast that the radiologist can view as a 3D reconstruction. The Hologic unit can perform full-field digital mammograms (2D imaging); or DBT (3D imaging); or both, in a combination mode that quickly performs both the mammogram and the tomosynthesis scan while the breast is still compressed. PQRS 6045F: Fluoroscopic imaging is not utilized for breast tomosynthesis. TECHNICAL DOCUMENTATION: FINDING NUMBER: (1) ASSESSMENT: (1) JOB ID: [id number] [employer]- All Rights Reserved Reading location - IP/workstation name: [email or web address]
== END ==
LOC: WI 13:25
PROVIDERS: ATTEND Physician Assistant
DX: Z12.31 Encounter for screening mammogram for malignant neoplasm of breast (principal)
CPT/HCPCS: 77063; 77067

== ENCOUNTER → 2018-08-26 | Outpatient (CLI) | payer MEDICARE ==
--- NOTE | 2018-08-26 12:15 | WOMENS IMAGING REPORT ---
EXAM DESCRIPTION: 3D SCREENING MAMMO BILAT COMPLETED DATE/TIME: 08/26/2018 8:06 am REASON FOR STUDY: Z12.31 ROUTINE 3D BILATERAL SCREENING Z12.31 ENCNTR SCREEN MAMMOGRAM FOR MALIGNAN T NEOPLASM OF ALEXA COMPARISON: 08/21/2017. EXAM PARAMETERS: Views: Standard craniocaudal and mediolateral oblique views of each breast recorded using digital acquisition and breast tomosynthesis. Read with the assistance of CAD. .[facility] - [employer] Version 9.2 LIMITATIONS: None. FINDINGS: No suspicious masses, suspicious calcifications or architectural distortion. No areas of c oncern. IMPRESSION: NEGATIVE MAMMOGRAM. BIRADS 1. BREAST DENSITY: b. There are scattered areas of fibroglandular density. BIRAD: ASSESSMENT: 1 NEGATIVE RECOMMENDATION: ROUTINE SCREENING COMMENT: The patient has been notified of the results by letter per MQSA requirements. Additional no tification policies are in place for contacting patient with suspicious or incomplete findings. Quality ID #225: The [employer] recommends an annual screening mammogram for women aged 40 years or over. This facility utilizes a reminder system to ensure that all patients receive reminder letters, and/or direct phone calls for appointments. This includes reminders for routine scr eening mammograms, diagnostic mammograms, or other Breast Imaging Interventions when appropriate. Th is patient will be placed in the appropriate reminder system. TECHNICAL DOCUMENTATION: FINDING NUMBER: (1) ASSESSMENT: (1) JOB ID: [id number] [employer]- All Rights Reserved Reading location - IP/workstation name: [email or web address]
== END ==
LOC: WI 07:32
PROVIDERS: ATTEND Physician Assistant
DX: Z12.31 Encounter for screening mammogram for malignant neoplasm of breast (principal)
CPT/HCPCS: 77063; 77067

== ENCOUNTER 2018-09-12 08:59 | Emergency (ER) | payer MEDICARE ==
--- NOTE | 2018-09-12 09:27 | ER Document Report ---
ED Medical Screen (RME) - General Chief Complaint: Foot Pain Stated Complaint: FOOT PAIN Time Seen by Provider: 09/12/18 09:21 Primary Care Provider: MERY FELDER PA-C [Primary Care Provider] - Follow up as needed Mode of Arrival: Wheelchair Information source: Patient Notes: 83-year-old female presented to ED for complaint of pain redness swelling to the left foot with ecchymosis to all the toes. Patient states she is a diabetic has a pacemaker and has a thyroid problems. She states that she does noted the discoloration today. She states the foot is painful. Patient is alert oriented respirations regular and unlabored speaking in full sentences. She is with her who is verbalizes most of the answers but patient is able to answer questions. I have greeted and performed a rapid initial assessment of this patient. A comprehensive ED assessment and evaluation of the patient, analysis of test results and completion of medical decision making process will be conducted by an additional ED providers. Dictation of this chart was performed using voice recognition software; therefore, there may be some unintended grammatical errors. TRAVEL OUTSIDE OF THE [place] IN LAST 30 DAYS: No - Related Data Allergies/Adverse Reactions: No Known Allergies Allergy (Verified 09/12/18 09:04) Past Medical History - Past Medical History Cardiac Medical History: Reports: Hx Atrial Fibrillation - and A flutter, with pacer, Hx Hypercholesterolemia, Hx Hypertension Denies: Hx Coronary Artery Disease, Hx Heart Attack Pulmonary Medical History: Reports: Hx COPD, Hx Pneumonia Denies: Hx Asthma, Hx Bronchitis Neurological Medical History: Reports: Hx Cerebrovascular Accident - Mini- strokes by scans. Pt never aware of stroke symptoms., Hx Migraine. Denies: Hx Seizures Endocrine Medical History: Reports: Hx Diabetes Mellitus Type 2, Hx Hypothyroidism Renal/ Medical History: Denies: Hx Peritoneal Dialysis GI Medical History: Reports: Hx Gastroesophageal Reflux Disease Musculoskeltal Medical History: Reports Hx Arthritis - HAND, KNEES, SHOULDER, NECK Psychiatric Medical History: Denies: Hx Depression Past Surgical History: Reports: Hx Cardiac Surgery - pacemaker 08/02, Hx Section - X2, Hx Hysterectomy, Hx Orthopedic Surgery - carpel tunnel surgery, Hx Pacemaker - Immunizations Hx Diphtheria, Pertussis, Tetanus Vaccination: Yes History of Influenza Vaccine for 12/2016 - 05/2017 Season: No Physical Exam - Vital signs Vitals: Temp Pulse Resp BP Pulse Ox 97.7 F 60 20 106/60 98 09/12/18 09:07 09/12/18 09:07 09/12/18 09:07 09/12/18 09:07 09/12/18 09:07 Course - Vital Signs Vital signs: Temp Pulse Resp BP Pulse Ox 97.7 F 60 20 106/60 98 09/12/18 09:07 09/12/18 09:07 09/12/18 09:07 09/12/18 09:07 09/12/18 09:07 Doctor's Discharge - Discharge Referrals: MERY FELDER PA-C [Primary Care Provider] - Follow up as needed
[2018-09-12 10:14] LABS: ABSOLUTE BASOPHILS # (AUTO) 0.1 10^3/uL (0.0-0.2); ABSOLUTE EOSINOPHILS # (AUTO) 0.2 10^3/uL (0.0-0.6); ABSOLUTE LYMPHOCYTES (AUTO) 1.4 10^3/uL (0.5-4.7); ABSOLUTE MONOCYTES (AUTO) 0.6 10^3/uL (0.1-1.4); ABSOLUTE NEUT (AUTO) 3.8 10^3/uL (1.7-8.2); BASOPHILS % (AUTO) 1.1 % (0-2); EOSINOPHILS % (AUTO) 3.9 % (0-6); HEMATOCRIT 30.7 % (36.0-47.0); HEMOGLOBIN 10.2 g/dL (12.0-15.5); LYMPHOCYTES % (AUTO) 22.6 % (13-45); MEAN CORPUSCULAR HEMOGLOBIN 28.6 pg (27.0-33.4); MEAN CORPUSCULAR HGB CONC 33.3 g/dL (32.0-36.0); MEAN CORPUSCULAR VOLUME 86 fl (80-97); MONOCYTES % (AUTO) 9.3 % (3-13); PLATELET COUNT 163 10^3/uL (150-450); RED BLOOD COUNT 3.58 10^6/uL (3.72-5.28); SEGMENTED NEUTROPHILS % (AUTO) 63.1 % (42-78); TOTAL CELLS COUNTED % (AUTO) 100 %
[2018-09-12 10:42] LABS: ALANINE AMINOTRANSFERASE 26 U/L (9-52); ALBUMIN 3.8 g/dL (3.5-5.0); ALKALINE PHOSPHATASE 98 U/L (38-126); ANION GAP 10 (5-19); ASPARTATE AMINO TRANSFERASE 26 U/L (14-36); BILIRUBIN,DIRECT 0.4 mg/dL (0.0-0.4); BLOOD UREA NITROGEN 26 mg/dL (7-20); CALCIUM 9.2 mg/dL (8.4-10.2); CARBON DIOXIDE 25 mmol/L (22-30); CHLORIDE 107 mmol/L (98-107); GLUCOSE 94 mg/dL (75-110); POTASSIUM 4.5 mmol/L (3.6-5.0); SODIUM 142.4 mmol/L (137-145); TOTAL PROTEIN 6.9 g/dL (6.3-8.2)
--- NOTE | 2018-09-12 11:33 | RADIOLOGY REPORT (SQ) ---
EXAM DESCRIPTION: FOOT LEFT COMPLETE COMPLETED DATE/TIME: 09/12/2018 10:30 am REASON FOR STUDY: Ecchymosis to all the toes redness to the foot COMPARISON: None. NUMBER OF VIEWS: Three views. TECHNIQUE: AP, lateral and oblique radiographic images acquired of the left foot. LIMITATIONS: None. FINDINGS: MINERALIZATION: Normal. BONES: No fracture or dislocation. Plantar calcaneal spur. JOINTS: No effusions. SOFT TISSUES: No soft tissue swelling. No foreign body. OTHER: No other significant finding. IMPRESSION: Calcaneal spur. No acute osseous abnormality. TECHNICAL DOCUMENTATION: JOB ID: [id number] [employer]- All Rights Reserved Reading location - IP/workstation name: [email or web address]
[2018-09-12 12:26] LABS: APPEARANCE,URINE CLEAR; BILIRUBIN,URINE NEGATIVE (NEGATIVE); COLOR,URINE YELLOW; GLUCOSE, URINE NEGATIVE (NEGATIVE); KETONES,URINE NEGATIVE (NEGATIVE); LEUKOCYTE ESTERASE,URINE TRACE (NEGATIVE); NITRITE,URINE NEGATIVE (NEGATIVE); PROTEIN,URINE NEGATIVE (NEGATIVE); URINE SPECIFIC GRAVITY 1.013; UROBILINOGEN,URINE NEGATIVE mg/dL (<2.0)
--- NOTE | 2018-09-12 12:59 | ER Document Report ---
ED General - General Chief Complaint: Foot Pain Stated Complaint: FOOT PAIN Time Seen by Provider: 09/12/18 09:21 Primary Care Provider: MERY FELDER PA-C [Primary Care Provider] - Follow up in 3-5 days Mode of Arrival: Wheelchair TRAVEL OUTSIDE OF THE [place] IN LAST 30 DAYS: No - HPI Notes: 83-year-old female to the emergency department with her with complaints of left foot swelling, discoloration, pain that began 3 days ago. states that today he noticed that her toes were black in the top of her foot was red. He also states that patient was wincing when she was trying to bear weight. Patient denies any sort of injury that she remembers. denies any sort of lesion or ulceration on the feet. Patient is on Eliquis and has been since she had a stroke. Patient and deny any fevers, chills, chest pain, shortness of breath, streaking erythema up the leg, abdominal pain, urinary complaints. - Related Data Allergies/Adverse Reactions: No Known Allergies Allergy (Verified 09/12/18 09:04) Past Medical History - General Information source: Patient, Relative - - Social History Smoking Status: Former Smoker Chew tobacco use (# tins/day): No Frequency of alcohol use: None Drug Abuse: None Family History: CAD Patient has suicidal ideation: No Patient has homicidal ideation: No - Past Medical History Cardiac Medical History: Reports: Hx Atrial Fibrillation - and A flutter, with pacer, Hx Hypercholesterolemia, Hx Hypertension Denies: Hx Coronary Artery Disease, Hx Heart Attack Pulmonary Medical History: Reports: Hx COPD, Hx Pneumonia Denies: Hx Asthma, Hx Bronchitis Neurological Medical History: Reports: Hx Cerebrovascular Accident - Mini- strokes by scans. Pt never aware of stroke symptoms., Hx Migraine. Denies: Hx Seizures Endocrine Medical History: Reports: Hx Diabetes Mellitus Type 2, Hx Hypothyroidism Renal/ Medical History: Denies: Hx Peritoneal Dialysis GI Medical History: Reports: Hx Gastroesophageal Reflux Disease Musculoskeletal Medical History: Reports Hx Arthritis - HAND, KNEES, SHOULDER, NECK Psychiatric Medical History: Denies: Hx Depression Past Surgical History: Reports: Hx Cardiac Surgery - pacemaker 08/02, Hx Section - X2, Hx Hysterectomy, Hx Orthopedic Surgery - carpel tunnel surgery, Hx Pacemaker - Immunizations Hx Diphtheria, Pertussis, Tetanus Vaccination: Yes Hx Pneumococcal Vaccination: 03/19/08 Review of Systems - Review of Systems Constitutional: denies: Chills, Fever EENT: No symptoms reported Cardiovascular: denies: Chest pain, Palpitations, Syncope, Dizziness, Lightheaded Respiratory: denies: Cough, Short of breath Gastrointestinal: denies: Abdominal pain, Diarrhea, Nausea, Vomiting Musculoskeletal: Joint pain - Left foot pain and swelling, Joint swelling. denies: Gout, Deformity Skin: Change in color - Left foot erythema and blackness to the toes Hematologic/Lymphatic: Easy bruising - And is on Eliquis and often will bruise Neurological/Psychological: No symptoms reported -: Yes All other systems reviewed and negative Physical Exam - Vital signs Vitals: Temp Pulse Resp BP Pulse Ox 97.7 F 60 20 106/60 98 09/12/18 09:07 09/12/18 09:07 09/12/18 09:07 09/12/18 09:07 09/12/18 09:07 Interpretation: Normal - General General appearance: Appears well, Alert In distress: None - HEENT Head: Normocephalic, Atraumatic Eyes: Normal Pupils: PERRL - Respiratory Respiratory status: No respiratory distress Chest status: Nontender Breath sounds: Normal Chest palpation: Normal - Cardiovascular Rhythm: Regular Heart sounds: Normal auscultation Murmur: No - Abdominal Inspection: Normal Distension: No distension Bowel sounds: Normal Tenderness: Nontender Organomegaly: No organomegaly - Back Back: Normal, Nontender - Extremities General lower extremity: Normal ROM, Normal strength - Neurological Neuro grossly intact: Yes Cognition: Normal Orientation: AAOx4 Madelia Coma Scale Eye Opening: Spontaneous Mad[place] Coma Scale Verbal: Oriented [place] Coma Scale Motor: Obeys Commands Madelia Coma Scale Total: 15 Speech: Normal Motor strength normal: LUE, RUE, LLE, RLE Sensory: Normal - Psychological Associated symptoms: Normal affect, Normal mood - Skin Skin Color: Mentor, Ecchymosis - To the toes there is yellowing ecchymosis without any edema or erythema. The skin is well intact. There is no ulceration, no blistering, no evidence of abscess, purulence. The dorsum of the foot there is mild erythema with warmth with no evidence of abscess, ulceration, manage Course - Vital Signs Vital signs: Temp Pulse Resp BP Pulse Ox 97.8 F 66 18 110/59 L 99 09/12/18 13:56 09/12/18 13:56 09/12/18 13:56 09/12/18 13:56 09/12/18 13:56 - Laboratory Result Diagrams: 09/12/18 09:53 09/12/18 09:53 Laboratory results interpreted by me: 09/12/18 09/12/18 09/12/18 09:53 09:53 12:10 RBC 3.58 L Hgb 10.2 L Hct 30.7 L RDW 17.0 H BUN 26 H Creatinine 1.64 H Est GFR ( Amer) 36 L Est GFR (Non-Af Amer) 30 L Urine Blood SMALL H Ur Leukocyte Esterase TRACE H - Diagnostic Test Radiology reviewed: Image reviewed, Reports reviewed - Transfer of Care Notes: 09/12/18: Impression: Left foot ecchymosis, left foot pain, left foot cellulitis. Her labs are very reassuring, Her XR does not have an acute process. Noted Cr, which is a little worse than normal, but not significantly worse. Will start on Abx, have her follow with PCP very closely and have encouraged them to return if worsening redness, fever, worsening pain, opening of the skin, purulent drainage. patient and agree with the plan. Discharge - Discharge Clinical Impression: Foot pain, left, Cellulitis of foot, Superficial bruising of foot Condition: Good Disposition: HOME, SELF-CARE Instructions: Cellulitis ([facility]) Additional Instructions: FOLLOW UP WITH PRIMARY CARE IN 3-5 DAYS. COMPLETE ANTIBIOTICS. TYLENOL FOR PAIN. RETURN IF WORSENING REDNESS, FEVERS, WORSENING PAIN, BLISTERING, ULCERATIONS. Prescriptions: Cephalexin Monohydrate [Keflex 500 mg Capsule] 500 mg PO QID 10 Days #40 capsule Referrals: MERY FELDER PA-C [Primary Care Provider] - Follow up in 3-5 days
[2018-09-12] MEDS ORDERED: ACETAMINOPHEN 325 MG TABLET PO ONE (13:40)
[2018-09-12 13:57] VITALS: BP 110/59
== END 2018-09-12 13:57 | disposition home or self-care (01) ==
LOC: ER 08:59
DX: L03.116 Cellulitis of left lower limb (principal); S90.32XA Contusion of left foot, initial encounter; X58.XXXA Exposure to other specified factors, initial encounter; I10 Essential (primary) hypertension; J44.9 Chronic obstructive pulmonary disease, unspecified; E11.9 Type 2 diabetes mellitus without complications; Z79.02 Long term (current) use of antithrombotics/antiplatelets; Z86.73 Personal history of transient ischemic attack (TIA), and cerebral infarction without residual deficits; Z87.891 Personal history of nicotine dependence
CPT/HCPCS: 36415; 80053; 81001; 82962; 85025; 99283

== ENCOUNTER 2018-09-14 11:11 | Emergency (ER) | payer MEDICARE ==
--- NOTE | 2018-09-14 11:32 | ER Document Report ---
ED Medical Screen (RME) - General Chief Complaint: Foot Pain Stated Complaint: FOOT PAIN Time Seen by Provider: 09/14/18 11:25 Primary Care Provider: MERY FELDER PA-C [Primary Care Provider] - Follow up as needed Mode of Arrival: Ambulatory Information source: Patient Notes: Patient return to the emergency department today for worsening symptoms. Patient and report increased redness and swelling. Pt reports pain with touch. Denies trauma. Pt is a diabetic. Reports she was evaluated in the emergency department 2 days ago for same symptoms. Left foot with erythema swelling some discoloration/darkening around her toes. I have greeted and performed a rapid initial assessment of this patient. A comprehensive ED assessment and evaluation of the patient, analysis of test results and completion of the medical decision making process will be conducted by additional ED providers. Dictation of this chart was performed using voice recognition software; therefore, there may be some unintended grammatical errors. TRAVEL OUTSIDE OF THE [place] IN LAST 30 DAYS: No - Related Data Allergies/Adverse Reactions: No Known Allergies Allergy (Verified 09/14/18 11:13) Past Medical History - Past Medical History Cardiac Medical History: Reports: Hx Atrial Fibrillation - and A flutter, with pacer, Hx Hypercholesterolemia, Hx Hypertension Denies: Hx Coronary Artery Disease, Hx Heart Attack Pulmonary Medical History: Reports: Hx COPD, Hx Pneumonia Denies: Hx Asthma, Hx Bronchitis Neurological Medical History: Reports: Hx Cerebrovascular Accident - Mini- strokes by scans. Pt never aware of stroke symptoms., Hx Migraine. Denies: Hx Seizures Endocrine Medical History: Reports: Hx Diabetes Mellitus Type 2, Hx Hypothyroidism Renal/ Medical History: Denies: Hx Peritoneal Dialysis GI Medical History: Reports: Hx Gastroesophageal Reflux Disease Musculoskeltal Medical History: Reports Hx Arthritis - HAND, KNEES, SHOULDER, NECK Psychiatric Medical History: Denies: Hx Depression Past Surgical History: Reports: Hx Cardiac Surgery - pacemaker 08/02, Hx Section - X2, Hx Hysterectomy, Hx Orthopedic Surgery - carpel tunnel surgery, Hx Pacemaker - Immunizations Hx Diphtheria, Pertussis, Tetanus Vaccination: Yes History of Influenza Vaccine for 12/2016 - 05/2017 Season: No Physical Exam - Vital signs Vitals: Temp Pulse Resp BP Pulse Ox 97.6 F 60 20 103/39 L 98 09/14/18 11:23 09/14/18 11:23 09/14/18 11:23 09/14/18 11:23 09/14/18 11:23 Course - Vital Signs Vital signs: Temp Pulse Resp BP Pulse Ox 97.6 F 60 20 103/39 L 98 09/14/18 11:23 09/14/18 11:23 09/14/18 11:23 09/14/18 11:23 09/14/18 11:23 Doctor's Discharge - Discharge Referrals: MERY FELDER PA-C [Primary Care Provider] - Follow up as needed
[2018-09-14] MEDS ORDERED: CLINDAMYCIN 600 MG/D5W RTU 600 MG/50 ML RTUPB IV ONE (11:54)
[2018-09-14] MEDS ORDERED: NORMAL SALINE 500 ML IV ONE (11:54)
[2018-09-14 12:19] LABS: ABSOLUTE BASOPHILS # (AUTO) 0.1 10^3/uL (0.0-0.2); ABSOLUTE EOSINOPHILS # (AUTO) 0.3 10^3/uL (0.0-0.6); ABSOLUTE LYMPHOCYTES (AUTO) 1.6 10^3/uL (0.5-4.7); ABSOLUTE MONOCYTES (AUTO) 0.5 10^3/uL (0.1-1.4); ABSOLUTE NEUT (AUTO) 4.5 10^3/uL (1.7-8.2); BASOPHILS % (AUTO) 1.1 % (0-2); EOSINOPHILS % (AUTO) 4.5 % (0-6); HEMATOCRIT 34.3 % (36.0-47.0); HEMOGLOBIN 11.2 g/dL (12.0-15.5); MEAN CORPUSCULAR HEMOGLOBIN 28.2 pg (27.0-33.4); MEAN CORPUSCULAR HGB CONC 32.7 g/dL (32.0-36.0); MEAN CORPUSCULAR VOLUME 86 fl (80-97); MONOCYTES % (AUTO) 7.6 % (3-13); PLATELET COUNT 201 10^3/uL (150-450); RED BLOOD COUNT 3.98 10^6/uL (3.72-5.28); SEGMENTED NEUTROPHILS % (AUTO) 63.8 % (42-78); TOTAL CELLS COUNTED % (AUTO) 100 %; WHITE BLOOD COUNT 7.1 10^3/uL (4.0-10.5)
[2018-09-14 12:26] LABS: ALANINE AMINOTRANSFERASE 22 U/L (9-52); ALKALINE PHOSPHATASE 93 U/L (38-126); ANION GAP 11 (5-19); ASPARTATE AMINO TRANSFERASE 35 U/L (14-36); BILIRUBIN,DIRECT 0.5 mg/dL (0.0-0.4); BILIRUBIN,TOTAL 1.1 mg/dL (0.2-1.3); BLOOD UREA NITROGEN 31 mg/dL (7-20); CALCIUM 9.2 mg/dL (8.4-10.2); CARBON DIOXIDE 25 mmol/L (22-30); CHLORIDE 108 mmol/L (98-107); GLUCOSE 123 mg/dL (75-110); POTASSIUM 4.9 mmol/L (3.6-5.0); SODIUM 143.6 mmol/L (137-145); TOTAL PROTEIN 7.3 g/dL (6.3-8.2)
[2018-09-14 12:55] LABS: APPEARANCE,URINE CLEAR; BILIRUBIN,URINE NEGATIVE (NEGATIVE); COLOR,URINE YELLOW; GLUCOSE, URINE NEGATIVE (NEGATIVE); KETONES,URINE NEGATIVE (NEGATIVE); LEUKOCYTE ESTERASE,URINE NEGATIVE (NEGATIVE); NITRITE,URINE NEGATIVE (NEGATIVE); PROTEIN,URINE NEGATIVE (NEGATIVE); URINE SPECIFIC GRAVITY 1.012; UROBILINOGEN,URINE NEGATIVE mg/dL (<2.0)
--- NOTE | 2018-09-14 13:37 | ER Document Report ---
ED General - General Chief Complaint: Foot Pain Stated Complaint: FOOT PAIN Time Seen by Provider: 09/14/18 11:25 Primary Care Provider: MERY FELDER PA-C [Primary Care Provider] - 09/16/18 Mode of Arrival: Ambulatory TRAVEL OUTSIDE OF THE [place] IN LAST 30 DAYS: No - HPI Notes: 83-year-old female to the emergency department with complaints of worsening left foot cellulitis. She was seen here 2 days ago and placed on Keflex. She has been faithful on her medicines. Her states that yesterday the foot was looking much better and the redness had almost completely gone away. But today when she got up the redness was significantly worse and states that the patient was complaining of pain. Had no fevers. Patient and also r eport persistent bruising to her toes on the same side. Patient is on Eliquis. - Related Data Allergies/Adverse Reactions: No Known Allergies Allergy (Verified 09/14/18 11:13) Past Medical History - General Information source: Patient, Relative - Social History Smoking Status: Never Smoker Frequency of alcohol use: None Drug Abuse: None Family History: CAD Patient has suicidal ideation: No Patient has homicidal ideation: No - Past Medical History Cardiac Medical History: Reports: Hx Atrial Fibrillation - and A flutter, with pacer, Hx Hypercholesterolemia, Hx Hypertension Denies: Hx Coronary Artery Disease, Hx Heart Attack Pulmonary Medical History: Reports: Hx COPD, Hx Pneumonia Denies: Hx Asthma, Hx Bronchitis Neurological Medical History: Reports: Hx Cerebrovascular Accident - Mini- strokes by scans. Pt never aware of stroke symptoms., Hx Migraine. Denies: Hx Seizures Endocrine Medical History: Reports: Hx Diabetes Mellitus Type 2, Hx Hypothyroidism Renal/ Medical History: Denies: Hx Peritoneal Dialysis GI Medical History: Reports: Hx Gastroesophageal Reflux Disease Musculoskeletal Medical History: Reports Hx Arthritis - HAND, KNEES, SHOULDER, NECK Psychiatric Medical History: Denies: Hx Depression Past Surgical History: Reports: Hx Cardiac Surgery - pacemaker 08/02, Hx Section - X2, Hx Hysterectomy, Hx Orthopedic Surgery - carpel tunnel surgery, Hx Pacemaker - Immunizations Hx Diphtheria, Pertussis, Tetanus Vaccination: Yes Hx Pneumococcal Vaccination: 03/19/08 Review of Systems - Review of Systems Constitutional: denies: Chills, Fever EENT: No symptoms reported Cardiovascular: denies: Chest pain, Syncope, Dizziness Respiratory: denies: Short of breath Gastrointestinal: denies: Abdominal pain, Diarrhea, Nausea, Vomiting Musculoskeletal: Joint swelling - Left foot swelling and redness Skin: Change in color - Redness Hematologic/Lymphatic: No symptoms reported Neurological/Psychological: No symptoms reported -: Yes All other systems reviewed and negative Physical Exam - Vital signs Vitals: Temp Pulse Resp BP Pulse Ox 97.6 F 60 20 103/39 L 98 09/14/18 11:23 09/14/18 11:23 09/14/18 11:23 09/14/18 11:23 09/14/18 11:23 Interpretation: Normal - General General appearance: Appears well, Alert In distress: None - HEENT Head: Normocephalic, Atraumatic Eyes: Normal Pupils: PERRL - Respiratory Respiratory status: No respiratory distress Chest status: Nontender Breath sounds: Normal Chest palpation: Normal - Cardiovascular Rhythm: Regular Heart sounds: Normal auscultation Murmur: No - Abdominal Inspection: Normal Distension: No distension Bowel sounds: Normal Tenderness: Nontender Organomegaly: No organomegaly - Back Back: Normal, Nontender - Extremities General upper extremity: Normal inspection, Nontender, Normal color, Normal ROM, Normal temperature General lower extremity: Normal inspection, Nontender, Normal ROM, Normal temperature, Normal weight bearing. No: Normal color, Myra's sign Foot: Nontender, Ecchymosis, Other - To the left foot there is noted yellowing ecchymosis to all toes with no skin breakdown or evidence of ulceration. To the dorsum of the foot there is erythema and warmth. There is no blistering, ulc eration. In comparison to 2 days ago, this erythema is increased from my prior exam - Neurological Neuro grossly intact: Yes Cognition: Normal Orientation: AAOx4 [place] Coma Scale Eye Opening: Spontaneous [place] Coma Scale Verbal: Oriented [place] Coma Scale Motor: Obeys Commands [place] Coma Scale Total: 15 Speech: Normal Motor strength normal: LUE, RUE, LLE, RLE Sensory: Normal - Psychological Associated symptoms: Normal affect, Normal mood - Skin Skin Temperature: Warm Skin Moisture: Dry Skin Color: Erythema Skin irregularity: negative: Abscess, Decubitus ulcer Course - Vital Signs Vital signs: Temp Pulse Resp BP Pulse Ox 97.6 F 60 17 116/52 L 99 09/14/18 13:56 09/14/18 11:23 09/14/18 13:56 09/14/18 13:56 09/14/18 13:56 - Laboratory Result Diagrams: 09/14/18 11:47 09/14/18 11:47 Laboratory results interpreted by me: 09/14/18 09/14/18 11:47 11:47 Hgb 11.2 L Hct 34.3 L RDW 17.0 H Chloride 108 H BUN 31 H Creatinine 1.56 H Est GFR ( Amer) 39 L Est GFR (Non-Af Amer) 32 L Glucose 123 H Direct Bilirubin 0.5 H - Transfer of Care Notes: 09/14/[address] Sanchez. Trend labs, obtain blood cultures, get lactic acid. Will give gentle IVF and give Clindamycin. Dr. Sanchez agrees with the plan. Noted labs. They are very reassuring. No leukocytosis. Kidney function in comparison to 2 days ago is actually slightly improved. We will plan on outpatient therapy and give better coverage than the Keflex provided. Will start on doxycycline. Dr. Sanchez and I both went to the bedside to review treatment plan. Patient and her agree with the plan. Of note, patient has one erroneous hypotensive measured blood pressure. She has been monitored closely since that reading and she has had reassuring BPs since. Selected Entries 09/14/18 09/14/18 09/14/18 12:32 13:30 13:56 Temperature 97.6 F Heart Rate ( 61 60 60 Monitors) Respiratory 20 17 Rate Blood Pressure 110/55 L 114/53 L 116/52 L Blood Pressure 73 Mean O2 Sat by Pulse 98 99 Oximetry Impression: Left foot cellulitis. Will follow treatment plan as outlined above. 09/14/18 15:43 09/14/18 15:44 Discharge - Discharge Clinical Impression: Cellulitis of foot, Superficial bruising of foot Condition: Good Disposition: HOME, SELF-CARE Instructions: Cellulitis ([facility]) Additional Instructions: TANNER CONNELL WILL CALL YOU TOMORROW TO CHECK IN ABOUT THE FOOT. START DOXYCYCLINE. ELEVATE THE FOOT, WHEN FOOT IS DONE, PERFORM ANKLE PUMPS TO HELP CIRCULATE THE BLOOD. FOLLOW UP WITH PRIMARY CARE ON SUNDAY. Prescriptions: Doxycycline Hyclate 100 mg PO BID #20 capsule Referrals: MERY FELDER PA-C [Primary Care Provider] - 09/16/18
--- NOTE | 2018-09-14 13:52 | ER Document Report ---
Doctor's Note Notes: 09/14/18 13:50 This patient was seen in conjunction with the physician project construction assistant manager, please see her note to correlate with mine. In short this 83-year-old female presents to the emergency department after 3 days of cellulitis. She was treated with Keflex, it seemed to be worsening. She is had no fevers at home. No nausea or vomiting. On physical exam she is neurovascularly intact distally. She has a approximately 7 cm area of erythema over the dorsum of her foot with moderate edema. It is not well demarcated. She has an ecchymotic line across all of her toes without significant tenderness. Dorsalis pedis pulse is easily palpated. She has 1+ edema to the ankle but no significant posterior calf tenderness. Ne urovascular intact distally. I did review this patient's labs. She has no significant leukocytosis at this time. She has no other generalized symptoms I am concerned about more widespread infection. I do believe that it is reasonable to continue the patient on outpatient antibiotic treatment with doxycycline. She was given IV clindamycin here, with noted improvement by the physician project construction assistant manager. Patient is advised to return if she develops worsening and voiced understanding.
[2018-09-14 14:04] VITALS: BP 116/52
== END 2018-09-14 14:04 | disposition home or self-care (01) ==
LOC: ER 11:11
DX: L03.116 Cellulitis of left lower limb (principal); R58 Hemorrhage, not elsewhere classified; M79.672 Pain in left foot; Z79.01 Long term (current) use of anticoagulants; I10 Essential (primary) hypertension; J44.9 Chronic obstructive pulmonary disease, unspecified; E11.9 Type 2 diabetes mellitus without complications
CPT/HCPCS: 99283; 96365; 36415; 87040; 85025; 80053; 81001; 83605; J7040

== ENCOUNTER → 2019-09-12 | Outpatient (CLI) | payer MEDICARE ==
--- NOTE | 2019-09-12 09:38 | WOMENS IMAGING REPORT ---
EXAM DESCRIPTION: BONE DENSITY HIP/SPINE IMAGES COMPLETED DATE/TIME: 09/12/2019 9:17 am REASON FOR STUDY: Z78.0 ASYMPTOMATIC MENOPAUSAL STATE Z78.0 ASYMPTOMATIC MENOPAUSAL STATE COMPARISON: None. TECHNIQUE: Dual-Energy X-ray Absorptiometry (DEXA) of the AP Spine and Hip. LIMITATIONS: None. FINDINGS: LUMBAR SPINE: The bone mineral density (BMD) measured from L1, L3 and L4 in the AP projection correlates with a T-s core of 1.3, which is normal as defined by the World Health Organization. L2 was excluded from the c alculation due to asymmetrically elevated density, likely from degenerative change. BMD Change vs Baseline: N/A HIP: The bone mineral density (BMD) measured in the left hip correlates with a T-score of -1.1, which is o steopenia as defined by the World Health Organization. BMD Change vs Baseline: N/A 10 year Fracture Risk Assessment: Major Osteoporotic Fracture: 11% Hip Fracture: 2.5% IMPRESSION: 1. LUMBAR SPINE WHO CLASSIFICATION: NORMAL. 2. HIP WHO CLASSIFICATION: OSTEOPENIA. OVERALL ASSESSMENT: WHO CLASSIFICATION: OSTEOPENIA. COMMENT: The World Health Organization defines low BMD as follows: T-score: Normal: At or above -1.0 Osteopenia: Between -1.0 and -2.5 Osteoporosis: At or below -2.5 without fractures Established osteoporosis: At or below -2.5 with fractures In general, you may wish to consider: Diagnosis Treatment Follow-up DEXA Normal BMD Prevention 2-3 years Osteopenia Prevention/Therapy 1-2 years Osteoporosis Therapy Yearly TECHNICAL DOCUMENTATION: JOB ID: [id number] 2010 [employer]- All Rights Reserved Reading location - IP/workstation name: [email or web address]
--- NOTE | 2019-09-12 12:34 | WOMENS IMAGING REPORT ---
EXAM DESCRIPTION: 3D SCREENING MAMMO BILAT IMAGES COMPLETED DATE/TIME: 09/12/2019 9:17 am REASON FOR STUDY: Z12.31 ENCOUNTER FOR SCREENING MAMMOGRAM FOR MALIGNANT NEOPLASM OF BREAST Z78.0 A SYMPTOMATIC MENOPAUSAL STATE COMPARISON: 2017 and 2018. EXAM PARAMETERS: Standard craniocaudal and mediolateral oblique views of each breast recorded using digital acquisition and breast tomosynthesis. Read with the assistance of CAD. .[facility] - [place] [employer] Director Version 9.2 LIMITATIONS: None. FINDINGS: Findings present which are benign by mammographic criteria. No suspicious masses, calcific ations or architectural distortion. Pertinent benign findings: Stable benign calcifications. Benign mammographic findings may include one or more of the following: Smooth masses, popcorn/rim/coa rse calcifications, asymmetries, post-procedure changes, and lesions with long-standing stability. IMPRESSION: BENIGN MAMMOGRAPHIC FINDINGS. BIRADS 2 BREAST DENSITY: b. There are scattered areas of fibroglandular density. BIRAD: ASSESSMENT: 2 BENIGN FINDING(S) RECOMMENDATION: ROUTINE SCREENING COMMENT: The patient has been notified of the results by letter per [facility] requirements. Additional no tification policies are in place for contacting patient with suspicious or incomplete findings. Quality ID #[id number]: The [employer] recommends an annual screening mammogram for women aged 40 years or over. This facility utilizes a reminder system to ensure that all patients receive reminder letters, and/or direct phone calls for appointments. This includes reminders for routine scr eening mammograms, diagnostic mammograms, or other Breast Imaging Interventions when appropriate. Th is patient will be placed in the appropriate reminder system. TECHNICAL DOCUMENTATION: FINDING NUMBER: (1) ASSESSMENT: (1) JOB ID: [id number] 2010 [employer]- All Rights Reserved Reading location - IP/workstation name: [email or web address]
== END ==
LOC: WI 08:00
PROVIDERS: ATTEND Physician Assistant
DX: Z12.31 Encounter for screening mammogram for malignant neoplasm of breast (principal); M85.88 Other specified disorders of bone density and structure, other site; Z78.0 Asymptomatic menopausal state
CPT/HCPCS: 77063; 77067; 77080